=== PATIENT | female | born 1955 | race Caucasian/White ===

== ENCOUNTER 2024-09-25 22:34 | Emergency (ER) | payer MEDICARE, SELFPAY ==
--- OUTSIDE RECORDS SUMMARY | 2007-02-18 05:15 | XMS_ITS | Continuity of Care Document ---
Author Organization [facility] Address [address] [address] [place] [address] Phone Care Team Providers Care Solutions Analyst Name Role Phone Unavailable Unavailable Unavailable Allergies, Adverse Reactions, Alerts Substance Reaction Status Criticality Penicillins Itching, and swelling Active No Inf ormation Medications Medication Instructions Dosage Effective Dates (start - stop) Status Comments metformin ER 750 mg 24 hr Tab t tablet a day - Active Diovan 160 mg Tab every day - Active Lipitor 10 mg Tab Take 1 tablet by gustavo th daily - Active fexofenadine 180 mg Tab Take one tablet by mouth daily - Active Aspirin Low Dose 81 mg Tab, Delayed Release Take one tablet by mouth daily - Active Vitamin unknown Take 1 tablet by gustavo th daily - Active Procedures Procedure Date Colonoscopy Flex; Dx (sep Pro) 07 Advance Directives Directive Yes / No Effective Date File Name No Information Encounters Encounter Description Practice Location Reason(s) For Visit Diagnoses Date Provider Providers Copied on Encounter [facility], [address] [address], [place], [id number], tel:[phone] [facility] Colon Cancer ScreeningHemorrh oids Nos 7 No Information Family History Family Member Type Diagnosis Age At Onset No Information Payers Payer name Insurance type Covered constitution party ID Authoriza tion(s) [employer] [place] [id number] Social History Type Description Quantity Date Captured Comments Sex Female Smoking Status No Information Chief Complaint And Reason For Visit No Information Reason For Referral Reason For Referral No Information History Of Present Illness Encounter Date Complaint History Of Prese nt Illness No Information Functional Status Date Functional Assessmen t No Information Instructions Date Instruction Additional Infor mation No Information Assessments Type Assessment Date No Information Patient Care Teams Name Effective Dates (start - stop) Status Members No Information
--- OUTSIDE RECORDS SUMMARY | 2007-02-18 05:15 | XMS_ITS | Continuity of Care Document ---
Author Organization [facility] Address [address] [address] [place] [address] Phone Care Team Providers Care Tomb Maker Helper Name Role Phone Unavailable Unavailable Unavailable Allergies, [...] Diagnoses Date Provider Providers Copied on Encounter [facility], [address] [address], [place], [id number], tel:[phone] [facility] Colon Cancer ScreeningHemorrh oids Nos 7 No Information Family History Family Member Type Diagnosis Age At Onset No Information Payers Payer name Insurance type Covered republican ID Authoriza tion(s) [employer] [place] [id number] Social History Type Description Quantity Date Captured [...]
--- OUTSIDE RECORDS SUMMARY | 2024-08-31 11:00 | XMS_ITS | Encounter Summary ---
Author Organization [place] Address [address] [place] [address]. [place] [address] Care Team Providers Care District Extension Service Agent Name Role Phone Jolie Wild APRN SLUBBER MACHINE OPERATOR Primary Care Provider Jolie Wild APRN SLUBBER MACHINE OPERATOR Unavailable [phone] Sole Lockhart DPM, Podiatry /Foot and Ankle Surgery Unavailable Myron Moore MD Unavailable [phone] Reason for Visit * Reason Comments Recheck Medication Encounter Details Date Type Department Care Team (Late st Contact Info) Description 08/31/2024 11:00 AM CDT Office Visit [facility] [address] [place] [address] Jolie Wild APRN SLUBBER MACHINE OPERATOR [address] [place] [address] Hypertension goal BP (blood pressure) < 140/90 (Primary Dx); Type 2 diabetes mellitus without complication, without long-term current use of insulin (H); Hyperlipidemia LDL goal <100; HYPERLIPIDEMIA LDL GOAL <100; Diabetic polyneuropathy associated with type 2 diabetes mellitus (H) Social History Tobacco Use Types Packs/Day Years Used Date Smoking Tobacco: Never Smokeless Tobacco: Never Alcohol Use Standard Drinks/Week Comments Yes 0 (1 standard drink = 0.6 oz pur e alcohol) occasional PHQ-2 Answer Date Recorded PHQ-2 Score 0 08/31/2024 Adolescent Education Answer Date Record ed Getting School Help Needed Not on file 01/26 Interpersonal Safety Answer Date Record ed Do you feel physically and e motionally safe where you currently live? Yes 08/31/2024 Within the past 12 months, h ave you been hit, slapped, kicked or otherwise physically hurt by someone? No 08/31/2024 Within the past 12 months, h ave you been humiliated or emotionally abused in other ways by your partner or ex-partner? No 08/31/2024 Comments No Sex and Gender Information Value Date Recorded Sex Assigned at Not on file Legal Sex Female 3:11 AM ELEVATOR TROUBLESHOOTER Gender Identity Not on file Sexual Orientation Not on file Occupation Industry Job Start Date Job End Date retired Not on file Not on file Not on file Not on file Not on file Not on file Not on file documented as of this encounter Last Filed Vital Signs Vital Sign Reading Time Taken Comments Blood Pressure 151/87 08/31/2024 10:58 AM CDT Pulse 81 08/31/2024 10:58 AM CDT Temperature 36.7 C (98 F) 08/31/2024 10:58 AM CDT Respiratory Rate 14 08/31/2024 10:58 AM CDT Oxygen Saturation 100% 08/31/2024 10:58 AM CDT Inhaled Oxygen Concentration - - Weight 60.5 kg (133 lb 4.8 oz) 08/31/2024 10:58 AM CDT Height 167.6 cm (5' 6) 08/31/2024 10:58 AM CDT Body Mass Index 21.52 08/31/2024 10:58 AM CDT documented in this encounter Progress Notes * Jolie Wild APRN SLUBBER MACHINE OPERATOR - 08/31/2024 11:00 AM CDT Assessment & Plan Hypertension goal BP (blood pressure) < 140/90 Asymptomatic. Home readings well controlled. Refilled meds. Labs. Recheck in pharmacy. - Albumin Random Urine Quantitative with Creat Ratio; Future - Basic metabolic panel (Ca, Cl, CO2, Creat, Gluc, K, Na, BUN); Future - Albumin Random Urine Quantitative with Creat Ratio - Basic metabolic panel (Ca, Cl, CO2, Creat, Gluc, K, Na, BUN) - hydrochlorothiazide (HYDRODIURIL) 25 MG tablet; Take 1 tablet (25 mg) by mouth daily. - amLODIPine (NORVASC) 10 MG tablet; Take 1 tablet (10 mg) by mouth daily. Type 2 diabetes mellitus without complication, without long-term current use of insulin (H) Working on diet changes. Stay active. No change to med regimen. Recheck in 6 months. - Hemoglobin A1c; Future - Albumin Random Urine Quantitative with Creat Ratio; Future - Basic metabolic panel (Ca, Cl, CO2, Creat, Gluc, K, Na, BUN); Future - Hemoglobin A1c - Albumin Random Urine Quantitative with Creat Ratio - Basic metabolic panel (Ca, Cl, CO2, Creat, Gluc, K, Na, BUN) - metFORMIN (GLUCOPHAGE XR) 500 MG 24 hr tablet; Take 2 tablets (1,000 mg) by mouth 2 times daily. Hyperlipidemia LDL goal <100 Tolerating well. Refilled. Labs. - Lipid panel reflex to direct LDL Fasting; Future - Basic metabolic panel (Ca, Cl, CO2, Creat, Gluc, K, Na, BUN); Future - Lipid panel reflex to direct LDL Fasting - Basic metabolic panel (Ca, Cl, CO2, Creat, Gluc, K, Na, BUN) - lovastatin (MEVACOR) 40 MG tablet; Take 1 tablet (40 mg) by mouth daily. Diabetic polyneuropathy associated with type 2 diabetes mellitus (H) Stable. Monitor. The longitudinal plan of care for the diagnosis(es)/condition(s) as documented were addressed during this visit. Due to the added complexity in care, I will continue to support Kirsten in the subsequent management and with ongoing continuity of care. Alisha Curtis is a 69 year old, presenting for the following health issues: Recheck Medication 08/31/2024 10:57 AM Additional Questions Roomed by MR Accompanied by CAIO History of Present Illness Diabetes: She presents for follow up of diabetes. She is checking home blood glucose one time daily. She checks blood glucose at bedtime. Blood glucose is sometimes over 200 and never under 70. She is aware of hypoglycemia symptoms including dizziness. She has no concerns regarding her diabetes atthis time. She is having numbness in feet and burning in feet. The patient has had a diabetic eye exam in the last 12 months. Eye exam performed on July. Location of last eye exam [facility]. Hyperlipidemia: She presents for follow up of hyperlipidemia. She is taking medication to lower cholesterol. She is not having myalgia or other side effects to statin medications. Hypertension: She presents for follow up of hypertension. She does check blood pressure regularly outside of the clinic. Outpatient blood pressures have not been over 140/90. She does not follow a low salt diet. She eats 0-1 servings of fruits and vegetables daily.She consumes 0 sweetened beverage(s) daily.Sheexercises with enough effort to increase her heart rate 60 or more minutes per day. She exercises with enough effort to increase her heart rate 5 days per week. She is taking medications regularly. She will be making an eye appt soon No chest pain, palpitations, sob. No LE edema. Monitors bp at home. Readings in the 120-130s systolic and 70-80s diastolic. Taking medications as directed. No side effects. She has been eating out a lot more than usual lately. Aware that she needs to go back to baseline diet. Review of Systems Constitutional, HEENT, cardiovascular, pulmonary, gi and gu systems are negative, except as otherwise noted. Objective BP (!) 151/87 (BP Location: Right arm, Patient Position: Sitting, Cuff Size: Adult Regular) Pulse81 Temp 98 ??F (36.7 ??C) (Skin) Resp 14 Ht 1.676 m (5' 6) Wt 60.5 kg (133 lb 4.8 oz) LMP (LMP Unknown) SpO2 100% BMI 21.52 kg/m?? Body mass index is 21.52 kg/m??. Physical Exam GENERAL: alert and no distress EYES: Eyes grossly normal to inspection NECK: no adenopathy, no asymmetry, masses, or scars RESP: lungs clear to auscultation - no rales, rhonchi or wheezes CV: regular rate and rhythm, normal S1 S2, no S3 or S4, no murmur, click or rub, no peripheral edema ABDOMEN: soft, nontender, no hepatosplenomegaly, no masses and bowel sounds normal NEURO: Normal strength and tone, mentation intact and speech normal PSYCH: mentation appears normal, affect normal/bright Results for orders placed or performed in visit on 08/31/24 (from the past 24 hours) Hemoglobin A1c Result Value Ref Range Estimated Average Glucose 163 (H) <117 mg/dL Hemoglobin A1C 7.3 (H) 0.0 - 5.6 % Signed Electronically by: Jolie Wild APRN CNP documented in this encounter Plan of Treatment Upcoming Encounters Date Type Department Care Team (Late st Contact Info) Description 03/06/2025 9:00 AM ELEVATOR TROUBLESHOOTER Office Visit [facility] [address] [place] [address] Jolie Wild APRN SLUBBER MACHINE OPERATOR [address] [place] [address] documented as of this encounter Procedures Procedure Name Priority Date/Time Associated Diagnosis Comments ALBUMIN RANDOM URINE QUANTITATIVE Routine 08/31/2024 10:51 AM CDT Hypertension goal BP (blood pressure) < 140/90 Type 2 diabetes mellitus without complication, without long-term current use of insulin (H) LIPID REFLEX TO DIRECT LDL PANEL Routine 08/31/2024 10:41 AM CDT Hyperlipidemia LDL goal <100 HEMOGLOBIN A1C Routine 08/31/2024 10:41 AM CDT Type 2 diabetes mellitus without complication, without long-term current use of insulin (H) BASIC METABOLIC PANEL Routine 08/31/2024 10:41 AM CDT Hypertension goal BP (blood pressure) < 140/90 Type 2 diabetes mellitus without complication, without long-term current use of insulin (H) Hyperlipidemia LDL goal <100 documented in this encounter Results * Albumin Random Urine Quantitative with Creat Ratio (08/31/2024 10:51 AM CDT) Creatinine Urine mg/dL 22.4 mg/dL 08/31/2024 4:50 PM CDT [facility] Comment:The reference ranges have not been established in urine creatinine. The results should be integrated into the clinical context for interpretation. Albumin Urine mg/L <12.0 mg/L 2024 4:50 PM CDT [facility] Comment:The reference ranges have not been established in urine albumin. The results should be integrated into the clinical context for interpretation. Albumin Urine mg/g Cr 08/31/2024 4:50 PM CDT [facility] Comment: Unable to calculate, urine albumin and/or urine creatinine is outside detectable limits. Microalbuminuria is defined as an albumin:creatinine ratio of 17 to 299 for males and 25 to 299 for females. A ratio of albumin:creatinine of 300 or higher is indicative of overt proteinuria. Due to biologic variability, positive results should be confirmed by a second, first-morning random or 24-hour timed urine specimen. If there is discrepancy, a third specimen is recommended. When 2 out of 3 results are in the microalbuminuria range, this is evidence for incipient nephropathy and warrants increased efforts at glucose control, blood pressure control, and institution of therapy with an yctckqgrjrp-yocxwyztzg-dfgqfy (HANNAH) inhibitor (if the patient can tolerate it). Urine URINE SPECIMEN / Unknown Non-blood Collection / Unknown 08/31/2024 10:51 AM CDT 08/31/2024 10:51 AM CDT us Jolie Wild APRN SLUBBER MACHINE OPERATOR LAB - URINE ORDERABLES Final Result [facility] [address], [address] [id number] * (ABNORMAL) Basic metabolic panel (Ca, Cl, CO2, Creat, Gluc, K, Na, BUN) (08/31/2024 10:41 AM CDT) Sodium 138 135 - 145 mmol/L 08/31/2024 2:59 PM CDT [facility] Potassium 4.4 3.4 - 5.3 mmol/L 08/31/2024 2:59 PM CDT [facility] Chloride 98 98 - 107 mmol/L 08/31/2024 2:59 PM CDT [facility] Carbon Dioxide (CO2) 28 22 - 29 mmol/L 08/31/2024 2:59 PM CDT [facility] Anion Gap 12 7 - 15 mmol/L 08/31/2024 2:59 PM CDT [facility] Urea Nitrogen 9.1 8.0 - 23.0 mg/dL 08/31/2024 2:59 PM CDT [facility] Creatinine 0.50(L) 0.51 - 0.95 mg/dL 08/31/2024 2:59 PM CDT [facility] GFR Estimate >90 >60 mL/min/1.7 3m2 08/31/2024 2:59 PM CDT [facility] Comment:eGFR calculated usin 2020 CKD-EPI equation. Calcium 9.8 8.8 - 10.4 mg/dL 08/31/2024 2:59 PM CDT [facility] Glucose 211(H) 70 - 99 mg/dL 08/31/2024 2:59 PM CDT [facility] Patient Fasting > 8hrs? No 08/31/2024 2:59 PM CDT [facility] Blood BLOOD SPECIMEN / Unknown Venipuncture / Unknown 08/31/2024 10:41 AM CDT 08/31/2024 10:41 AM CDT us Jolie Wild PACKAGING TECHNICIAN SLUBBER MACHINE OPERATOR LAB - BLOOD ORDERABLES Final Result [facility] [place] [facility] [address], [address] [id number] * (ABNORMAL) Lipid panel reflex to direct LDL Fasting (08/31/2024 10:41 AM CDT) Cholesterol 219(H) <200 mg/dL 08/31/2024 2:59 PM CDT [facility] Triglycerides 60 <150 mg/dL 08/31/2024 2:59 PM CDT [facility] Direct Measure HDL 112 >=50 mg/dL 08/31/2024 2:59 PM CDT [facility] LDL Cholesterol Calculated 95 <100 mg/dL 08/31/2024 2:59 PM CDT [facility] Non HDL Cholesterol 107 <130 mg/dL 08/31/2024 2:59 PM CDT [facility] Patient Fasting > 8hrs? No 08/31/2024 2:59 PM CDT [facility] Blood BLOOD SPECIMEN / Unknown Venipuncture / Unknown 08/31/2024 10:41 AM CDT 08/31/2024 10:41 AM CDT Narrative [facility] - 08/31/2024 2:59 PM CDT Cholesterol Desirable: < 200 mg/dL Borderline High: 200 - 239 mg/dL High: >= 240 mg/dL Triglycerides Normal: < 150 mg/dL Borderline High: 150 - 199 mg/dL High: 200-499 mg/dL Very High: >= 500 mg/dL Direct Measure HDL Female: >= 50 mg/dL Male: >= 40 mg/dL LDL Cholesterol Desirable: < 100 mg/dL Above Desirable: 100 - 129 mg/dL Borderline High: 130 - 159 mg/dL High: 160 - 189 mg/dL Very High: >= 190 mg/dL Non HDL Cholesterol Desirable: < 130 mg/dL Above Desirable: 130 - 159 mg/dL Borderline High: 160 - 189 mg/dL High: 190 - 219 mg/dL Very High: >= 220 mg/dL Jolie Wild APRN, CNP LAB - BLOOD ORDERABLES Final Result [facility] Lab [address] [id number] * (ABNORMAL) Hemoglobin A1c (08/31/2024 10:41 AM CDT) Estimated Average Glucose 163(H) <117 mg/dL 08/31/2024 10:49 AM CDT LABORATORY Hemoglobin A1C 7.3(H) 0.0 - 5.6 % 08/31/2024 10:49 AM CDT LABORATORY Comment: Normal <5.7% Prediabetes 5.7-6.4% Diabetes 6.5% or higher Note: Adopted from ADA consensus guidelines. Blood BLOOD SPECIMEN / Unknown Venipuncture / Unknown 08/31/2024 10:41 AM CDT 08/31/2024 10:41 AM CDT Jolie Wild APRN, CNP LAB - BLOOD ORDERABLES Final Result [facility]ATORY [facility] [address] [address] [facility] (no room number, 1st floor of clinic) [place] [address], [facility] documented in this encounter Visit Diagnoses Diagnosis Hypertension goal BP (blood pressure) < 140/90- Primary Unspecified essential hypertension Type 2 diabetes mellitus without complication, without long-term current use of insulin (H) HYPERLIPIDEMIA LDL GOAL <100 Other and unspecified hyperlipidemia Diabetic polyneuropathy associated with type 2 diabetes mellitus (H) documented in this encounter Additional Health Concerns Assessment Noted Time PHQ-9 Depression Total Score: 2 12/19/19 21 11:32 AM CDT documented as of this encounter Care Teams District Extension Service Agent Relationship Specialty Start Date End Date Jolie Wild APRN SLUBBER MACHINE OPERATOR [address] [place] [address] PCP - General Family Practice 11/08/19 Jolie Wild APRN SLUBBER MACHINE OPERATOR [address] [place] [address] Assigned PCP 11/12/19 Sole Lockhart DPM, Podiatry/Foot and Ankle Surgery [address] [facility] [address] [place] [address] Assigned Musculoskeletal Provider 10/03/22 Myron Moore MD [address] [facility] [address] [place] [address] Assigned OBGYN Provider 03/13/23 documented as of this encounter
--- OUTSIDE RECORDS SUMMARY | 2024-09-25 22:36 | XMS_ITS | Encounter Summary ---
Author Organization [place] Address [address] [place] [address]. [place] [address] Care Team Providers Care Furniture Stainer Name Role Phone Jolie Wild APRN TICKET SORTER Primary Care Provider Jolie Wild APRN TICKET SORTER Unavailable [phone] Sole Lockhart DPM, Podiatry /Foot and Ankle Surgery Unavailable Myron Moore MD Unavailable [phone] Encounter Details Date Type Department Care Team (Latest Contact Info) Description 08/31/2024 Travel Social History Tobacco Use Types Packs/Day Years [...] on file Legal Sex Female 3:11 AM BAKERY MACHINE MECHANIC SUPERVISOR Gender Identity Not on file Sexual Orientation Not on file Occupation Industry Job Start Date Job End Date retired Not on file Not on file Not on file Not on file Not on file Not on file Not on file documented as of this encounter Plan of Treatment Upcoming Encounters Date Type Department Care Team (Late st Contact Info) Description 03/06/2025 9:00 AM BAKERY MACHINE MECHANIC SUPERVISOR [facility] [address] [place] [address] Jolie Wild APRN TICKET SORTER [address] [place] [address] documented as of this encounter Visit Diagnoses Not on filedocumented in this encounter Additional Health Concerns Assessment Noted Time PHQ-9 Depression Total Score: 2 12/19/19 21 11:32 AM CDT documented as of this encounter Care Teams Furniture Stainer Relationship Specialty Start Date End Date Jolie Wild APRN TICKET SORTER [address] [place] [address] PCP - General Family Practice 11/08/19 Jolie Wild APRN TICKET SORTER [address] [place] [address] Assigned PCP 11/12/19 Sole Lockhart DPM, Podiatry/Foot and Ankle Surgery [address] [facility] [address] [place] [address] Assigned Musculoskeletal Provider 10/03/22 Myron Moore MD [address] [facility] [address] [place] [address] Assigned OBGYN Provider 03/13/23 documented as of this encounter
--- OUTSIDE RECORDS SUMMARY | 2024-09-25 22:36 | XMS_ITS | Encounter Summary ---
Author Organization [place] Address [address] [place] [address]. [place] [address] Care Team Providers Care Safety Trainer Name Role Phone Jolie Wild APRN INTERN Primary Care Provider Jolie Wild APRN INTERN Unavailable [phone] Sole Lockhart DPM, Podiatry /Foot and Ankle Surgery Unavailable Myron Moore MD Unavailable [phone] Encounter Details Date Type Department Care Team (Late st Contact Info) Description 11/15/2023 My[facility] Medical Advice [address] [address] Josey Coates Social History Tobacco Use Types Packs/Day Years Used Date Smoking Tobacco: Never Smokeless Tobacco: Never Alcohol Use Standard Drinks/Week Comments Yes 0 (1 standard drink = 0.6 oz pur e alcohol) occasional PHQ-2 Answer Date Recorded PHQ-2 Score 0 11/15/2023 Adolescent Education Answer Date Record ed Getting School Help Needed Not on file 01/26 Interpersonal Safety Answer Date Record ed Do you feel physically and e motionally safe where you currently live? Yes 11/15/2023 Within the past 12 months, h ave you been hit, slapped, kicked or otherwise physically hurt by someone? No 11/15/2023 Within the past 12 months, h ave you been humiliated or emotionally abused in other ways by your partner or ex-partner? No 11/15/2023 Comments No Sex and Gender Information Value Date Recorded Sex Assigned at Not on file Legal Sex Female 3:11 AM MARKET GARDENER Gender Identity Not on file Sexual Orientation Not on file Occupation Industry Job Start Date Job End Date retired Not on file Not on file Not on file Not on file Not on file Not on file Not on file documented as of this encounter Plan of Treatment Upcoming Encounters Date Type Department Care Team (Late st Contact Info) Description 03/06/2025 9:00 AM MARKET GARDENER Office Visit [facility] [place] [address] [place] [id number] Jolie Wild APRN INTERN [address] [place] [id number] documented as of this encounter Visit Diagnoses Not on filedocumented in this encounter Additional Health Concerns Assessment Noted Time PHQ-9 Depression Total Score: 2 12/19/19 21 11:32 AM CDT documented as of this encounter Care Teams Safety Trainer Relationship Specialty Start Date End Date Jolie Wild APRN INTERN [address] [place] [address] PCP - General Family Practice 11/08/19 Jolie Wild APRN INTERN [address] [place] [address] Assigned PCP 11/12/19 Sole Lockhart DPM, Podiatry/Foot and Ankle Surgery [address] [place] [address] Assigned Musculoskeletal Provider 10/03/22 Myron Moore MD [address] [place] [address] Assigned OBGYN Provider 03/13/23 documented as of this encounter
--- OUTSIDE RECORDS SUMMARY | 2024-09-25 22:36 | XMS_ITS | Encounter Summary ---
Author Organization [place] Address [address] [place] [address]. [place] [address] Care Team Providers Care Organic Chemist Name Role Phone Jolie Wild APRN COMPOSITION BOARD PRESS OPERATOR Primary Care Provider Jolie Wild APRN COMPOSITION BOARD PRESS OPERATOR Unavailable [phone] Sole Lockhart DPM, Podiatry /Foot and Ankle Surgery Unavailable Myron Moore MD Unavailable [phone] Encounter Details Date Type Department Care Team (Late st Contact Info) Description 04/01/2022 [facility] Medical Advice Adult Call Center [address] [place] [address] [facility] Tobacco Use Types Packs/Day Years Used Date Smoking Tobacco: Never Smokeless Tobacco: Never Alcohol Use Standard Drinks/Week Comments Yes 0 (1 standard drink = 0.6 oz pur e alcohol) occasional PHQ-2 Answer Date Recorded PHQ-2 Score 0 02/26/2022 Comments No Sex and Gender Information Value Date Recorded Sex Assigned at Not on file Legal Sex Female 3:11 AM PROFESSOR OF FORESTRY Gender Identity Not on file Sexual Orientation Not on file Occupation Industry Job Start Date Job End Date retired Not on file Not on file Not on file Not on file Not on file Not on file Not on file documented as of this encounter Plan of Treatment Upcoming Encounters Date Type Department Care Team (Late st Contact Info) Description 03/06/2025 9:00 AM PROFESSOR OF FORESTRY Office Visit [facility] [address] [address] [address] Jolie Wild APRN COMPOSITION BOARD PRESS OPERATOR [address] [place] [address] documented as of this encounter Visit Diagnoses Not on filedocumented in this encounter Additional Health Concerns Assessment Noted Time PHQ-9 Depression Total Score: 2 12/19/19 21 11:32 AM CDT documented as of this encounter Care Teams Organic Chemist Relationship Specialty Start Date End Date Jolie Wild APRN COMPOSITION BOARD PRESS OPERATOR [address] [place] [address] PCP - General Family Practice 11/08/19 Jolie Wild APRN COMPOSITION BOARD PRESS OPERATOR [address] [place] [address] Assigned PCP 11/12/19 Sole Lockhart DPM, Podiatry/Foot and Ankle Surgery [address] [facility] [address] [place] [address] Assigned Musculoskeletal Provider 10/03/22 Myron Moore MD [address] [facility] [address] [place] [address] Assigned OBGYN Provider 03/13/23 documented as of this encounter
--- OUTSIDE RECORDS SUMMARY | 2024-09-25 22:36 | XMS_ITS | Encounter Summary ---
Author Organization [place] Address [address] [place] [address]. [place] [address] Care Team Providers Care Roll Threader Operator Name Role Phone Jolie Wild APRN TRANSPORT COORDINATOR Primary Care Provider Jolie Wild APRN TRANSPORT COORDINATOR Unavailable [phone] Sole Lockhart DPM, Podiatry /Foot and Ankle Surgery Unavailable Myron Moore MD Unavailable [phone] Reason for Visit * Reason Onset Date Comments Panel Management 08/18/2024 Encounter Details Date Type Department Care Team (Late st Contact Info) Description 08/18/2024 Telephone [facility] [address] [place] [address] Jolie Wild APRN TRANSPORT COORDINATOR [address] [place] [address] Panel Management Social History Tobacco Use Types Packs/Day Years [...] on file Legal Sex Female 3:11 AM UNIX DEVELOPER Gender Identity Not on file Sexual Orientation Not on file Occupation Industry Job Start Date Job End Date retired Not on file Not on file Not on file Not on file Not on file Not on file Not on file documented as of this encounter Miscellaneous Notes * Telephone Encounter - Dariela Arteaga MA - 08/25/2024 6:35 AM CDT Patient Quality Outreach Patient is due for the following: Diabetes - A1C Hypertension - BP check Physical Annual Wellness Visit Action(s) Taken: Patient has upcoming appointment, these items will be addressed at that time. Type of outreach: Sent letter. Questions for provider review: None Dariela Arteaga MA Chart routed to None. * Telephone Encounter - Dariela Arteaga MA - 08/18/2024 2:14 PM CDT Patient Quality Outreach Patient is due for the following: Physical Annual Wellness Visit Action(s) Taken: Schedule a Annual Wellness Visit Type of outreach: Sent [employer] message. Questions for provider review: None Dariela Arteaga MA Chart routed to None. documented in this encounter Plan of Treatment Upcoming Encounters Date Type Department Care Team (Late st Contact Info) Description 03/06/2025 9:00 AM UNIX DEVELOPER Office Visit [facility] [address] [place] [address] Jolie Wild APRN [facility] [address] [place] [address] documented as of this encounter Visit Diagnoses Not on filedocumented in this encounter Additional Health Concerns Assessment Noted Time PHQ-9 Depression Total Score: 2 12/19/19 21 11:32 AM CDT documented as of this encounter Care Teams Roll Threader Operator Relationship Specialty Start Date End Date Jolie Wild APRN TRANSPORT COORDINATOR [address] [place] [address] PCP - General Family Practice 11/08/19 Jolie Wild APRN TRANSPORT COORDINATOR [address] [address] [place] [address] Assigned PCP 11/12/19 Sole Lockhart DPRenea, Podiatry/Foot and Ankle Surgery [address] [place], [place] [address] Assigned Musculoskeletal Provider 10/03/22 Myron Moore MD [address] [place] [address] Assigned OBGYN Provider 03/13/23 documented as of this encounter
--- OUTSIDE RECORDS SUMMARY | 2024-09-25 22:36 | XMS_ITS | Encounter Summary ---
Author Organization [place] Address [facility] [place] [address] Care Team Providers Care Construction Carpenters Helper Name Role Phone Jolie Wild APRN RECREATION ESTABLISHMENT MANAGER Primary Care Provider Jolie Wild APRN RECREATION ESTABLISHMENT MANAGER Unavailable [phone] Sole Lockhart DPM, Podiatry /Foot and Ankle Surgery Unavailable Myron Moore MD Unavailable [phone] Encounter Details Date Type Department Care Team (Late st Contact Info) Description 12/24/2023 Telephone [facility] [address] [place] [address] Jolie Wild APRN [employer] [address] [place] [address] Social History Tobacco Use Types Packs/Day Years [...] on file Legal Sex Female 3:11 AM RESTRIKE HAMMER OPERATOR Gender Identity Not on file Sexual Orientation Not on file Occupation Industry Job Start Date Job End Date retired Not on file Not on file Not on file Not on file Not on file Not on file Not on file documented as of this encounter Miscellaneous Notes * Telephone Encounter - Traci West MA - 12/24/2023 8:28 AM CDT Patient Quality Outreach Patient is due for the following: Hypertension - BP check Next Steps: Schedule a nurse only visit for BP Check Type of outreach: Sent [employer] message. Questions for provider review: None Traci West MA documented in this encounter Plan of Treatment Upcoming Encounters Date Type Department Care Team (Late st Contact Info) Description 03/06/2025 9:00 AM RESTRIKE HAMMER OPERATOR Office Visit [facility] [place] [address] [address] Jolie Wild APRN CNP [address] [address] [place] [address] documented as of this encounter Visit Diagnoses Not on filedocumented in this encounter Additional Health Concerns Assessment Noted Time PHQ-9 Depression Total Score: 2 12/19/19 21 11:32 AM CDT documented as of this encounter Care Teams Construction Carpenters Helper Relationship Specialty Start Date End Date Jolie Wild APRN RECREATION ESTABLISHMENT MANAGER [address] [address] [place] [address] PCP - General Family Practice 11/08/19 Jolie Wild APRN CNP [address] [address] [place] [address] Assigned PCP 11/12/19 Sole Lockhart DPM, Podiatry/Foot and Ankle Surgery [address] [facility] [address] [place] [address] Assigned Musculoskeletal Provider 10/03/22 Myron Moore MD [address] [facility] [address] [place] [address] Assigned OBGYN Provider 03/13/23 documented as of this encounter
--- OUTSIDE RECORDS SUMMARY | 2024-09-25 22:36 | XMS_ITS | Encounter Summary ---
Author Organization [place] Address [address] [place] [address]. [place] [address] Care Team Providers Care Counselor/Art Therapist Name Role Phone Jolie Wild APRN HERD TESTER Primary Care Provider Jolie Wild APRN HERD TESTER Unavailable [phone] Sole Lockhart DPM, Podiatry /Foot and Ankle Surgery Unavailable Myron Moore MD Unavailable [phone] Encounter Details Date Type Department Care Team (Late st Contact Info) Description 09/04/2024 Results Follow-Up [facility] [address] [place] [address] Jolie Wild APRN HERD TESTER [address] [place] [address] Subj: Message about your results Social History Tobacco Use Types Packs/Day Years [...] on file Legal Sex Female 3:11 AM MANUFACTURERS AGENT Gender Identity Not on file Sexual Orientation Not on file Occupation Industry Job Start Date Job End Date retired Not on file Not on file Not on file Not on file Not on file Not on file Not on file documented as of this encounter Plan of Treatment Upcoming Encounters Date Type Department Care Team (Late st Contact Info) Description 03/06/2025 9:00 AM MANUFACTURERS AGENT Office Visit [facility] [address] [place] [address] Jolie Wild APRN HERD TESTER [address] [place] [address] documented as of this encounter Visit Diagnoses Not on filedocumented in this encounter Additional Health Concerns Assessment Noted Time PHQ-9 Depression Total Score: 2 12/19/19 21 11:32 AM CDT documented as of this encounter Care Teams Counselor/Art Therapist Relationship Specialty Start Date End Date Jolie Wild APRN CNP [address] [place] [address] PCP - General Family Practice 11/08/19 Jolie Wild APRN HERD TESTER [address] [place] [address] Assigned PCP 11/12/19 Sole Lockhart, DPM, Podiatry/Foot and Ankle Surgery [address] [place] [address] Assigned Musculoskeletal Provider 10/03/22 Myron Moore MD [address] [facility] [address] [place], [place] [address] Assigned OBGYN Provider 03/13/23 documented as of this encounter
--- OUTSIDE RECORDS SUMMARY | 2024-09-25 22:36 | XMS_ITS | Encounter Summary ---
Author Organization [place] Address [address] [place] [address] Care Team Providers Care Environmental Health Officer Name Role Phone Jolie Wild APRN MCAT INSTRUCTOR Primary Care Provider Jolie Wild APRN MCAT INSTRUCTOR Unavailable [phone] Sole Lockhart DPM, Podiatry /Foot and Ankle Surgery Unavailable Myron Moore MD Unavailable [phone] Encounter Details Date Type Department Care Team (Late st Contact Info) Description 06/29/2023 [facility] Medical Advice [address] [address] Raji Rosas, SAL Social History Tobacco Use Types Packs/Day Years Used Date Smoking Tobacco: Never Smokeless Tobacco: Never Alcohol Use Standard Drinks/Week Comments Yes 0 (1 standard drink = 0.6 oz pur e alcohol) occasional PHQ-2 Answer Date Recorded PHQ-2 Score 0 09/30/2022 Adolescent Education Answer Date Record ed Getting School Help Needed Not on file 01/26 Comments No Sex and Gender Information Value Date Recorded Sex Assigned at Not on file Legal Sex Female 3:11 AM MAJOR CASE DETECTIVE Gender Identity Not on file Sexual Orientation Not on file Occupation Industry Job Start Date Job End Date retired Not on file Not on file Not on file Not on file Not on file Not on file Not on file documented as of this encounter Plan of Treatment Upcoming Encounters Date Type Department Care Team (Late st Contact Info) Description 03/06/2025 9:00 AM MAJOR CASE DETECTIVE Office Visit [facility] [place] [address] [address] [address] Jolie Wild APRN MCAT INSTRUCTOR [address] [address] [place] [address] documented as of this encounter Visit Diagnoses Not on filedocumented in this encounter Additional Health Concerns Assessment Noted Time PHQ-9 Depression Total Score: 2 12/19/19 21 11:32 AM CDT documented as of this encounter Care Teams Environmental Health Officer Relationship Specialty Start Date End Date Jolie Wild APRN MCAT INSTRUCTOR [address] [address] [place] [address] PCP - General Family Practice 11/08/19 Jolie Wild APRN MCAT INSTRUCTOR [address] [address] [place] [address] Assigned PCP 11/12/19 Sole Lockhart DPM, Podiatry/Foot and Ankle Surgery [address] [address] [place] [address] Assigned Musculoskeletal Provider 10/03/22 Myron Moore MD [address] [place] [address] Assigned OBGYN Provider 03/13/23 documented as of this encounter
--- OUTSIDE RECORDS SUMMARY | 2024-09-25 22:36 | XMS_ITS | Encounter Summary ---
Author Organization [place] Address [address] [place] [address]. [place] [address] Care Team Providers Care Desktop Publishing Specialist Name Role Phone Jolie Wild APRN OPTOMETRIC TECHNOLOGIST Primary Care Provider Jolie Wild APRN OPTOMETRIC TECHNOLOGIST Unavailable [phone] Sole Lockhart DPM, Podiatry /Foot and Ankle Surgery Unavailable Myron Moore MD Unavailable [phone] Encounter Details Date Type Department Care Team (Late st Contact Info) Description 03/27/2021 External Order Results [facility] [address] [place] [address] Outside, Provider Social History Tobacco Use Types Packs/Day Years Used Date Smoking Tobacco: Never Smokeless Tobacco: Never Alcohol Use Standard Drinks/Week Comments Yes 0 (1 standard drink = 0.6 oz pur e alcohol) occasional PHQ-2 Answer Date Recorded PHQ-2 Score 0 12/18/2020 Comments No Sex and Gender Information Value Date Recorded Sex Assigned at Not on file Legal Sex Female 3:11 AM REIMBURSEMENT MANAGER Gender Identity Not on file Sexual Orientation Not on file Occupation Industry Job Start Date Job End Date retired Not on file Not on file Not on file Not on file Not on file Not on file Not on file documented as of this encounter Plan of Treatment Upcoming Encounters Date Type Department Care Team (Late st Contact Info) Description 03/06/2025 9:00 AM REIMBURSEMENT MANAGER Office Visit [facility] [place] [address] [address] Jolie Wild APRN OPTOMETRIC TECHNOLOGIST [address] [address] [place] [address] documented as of this encounter Procedures Procedure Name Priority Date/Time Associated Diagnosis Comments COVID-19 VIRUS (CORONAVIRUS) BY PCR (EXTERNAL RESULT) Routine 03/27/2021 1:00 PM REIMBURSEMENT MANAGER documented in this encounter Results * (ABNORMAL) COVID-19 Virus (Coronavirus) by PCR (External Result) (03/27/2021 1:00 PM REIMBURSEMENT MANAGER) COVID-19 Virus by PCR (External Result) DETECTED( A) NOT DETECTED NON-INTERFACE D (ONBASE SCANS) 03/27/2021 1:00 PM REIMBURSEMENT MANAGER Narrative CLAUDIO PFT - 05/12/2021 2:55 PM REIMBURSEMENT MANAGER Verified by Naun Leslie on 05/12/2021. us Provider Outside LABORATORY Edited Result - Final JYOTIARUN PFT NON-INTERFACED (ONBASE SCANS) documented in this encounter Visit Diagnoses Not on filedocumented in this encounter Additional Health Concerns Infection Onset Date Last Indicated Resolved Time Rule Out COVID-19 04/12/2021 04/12/2021 04/13/2021 2:53 PM REIMBURSEMENT MANAGER Assessment Noted Time PHQ-9 Depression Total Score: 2 12/19/19 21 11:32 AM CDT documented as of this encounter Care Teams Desktop Publishing Specialist Relationship Specialty Start Date End Date Jolie Wild APRN OPTOMETRIC TECHNOLOGIST [address] [place] [address] PCP - General Family Practice 11/08/19 Jolie Wild APRN OPTOMETRIC TECHNOLOGIST [address] [address] [place] [address] Assigned PCP 11/12/19 Sole Lockhart DPM, Podiatry/Foot and Ankle Surgery [address] [facility] [address] [place] [address] Assigned Musculoskeletal Provider 10/03/22 Myron Moore MD [address] [facility] [address] [place] [address] Assigned OBGYN Provider 03/13/23 documented as of this encounter
--- OUTSIDE RECORDS SUMMARY | 2024-09-25 22:36 | XMS_ITS | Encounter Summary ---
Author Organization [place] Address [address] [place] [address]. [place] [address] Care Team Providers Care Cigarette Packing Machine Operator Name Role Phone Jolie Wild APRN ROAD PRODUCTION GENERAL MANAGER Primary Care Provider Jolie Wild APRN ROAD PRODUCTION GENERAL MANAGER Unavailable [phone] Sole Lockhart DPM, Podiatry /Foot and Ankle Surgery Unavailable Myron Moore MD Unavailable [phone] Encounter Details Date Type Department Care Team (Late st Contact Info) Description 08/18/2024 [facility] Medical Advice [address] [address] Dariela Arteaga MA Social History Tobacco Use Types Packs/Day Years [...] on file Legal Sex Female 3:11 AM TITLE INSURANCE EXAMINER Gender Identity Not on file Sexual Orientation Not on file Occupation Industry Job Start Date Job End Date retired Not on file Not on file Not on file Not on file Not on file Not on file Not on file documented as of this encounter Plan of Treatment Upcoming Encounters Date Type Department Care Team (Late st Contact Info) Description 03/06/2025 9:00 AM TITLE INSURANCE EXAMINER Office Visit [facility] [place] [address] [place] [address] PRODUCTION GENERAL MANAGER [address] [place] [address] documented as of this encounter Visit Diagnoses Not on filedocumented in this encounter Additional Health Concerns Assessment Noted Time PHQ-9 Depression Total Score: 2 12/19/19 21 11:32 AM CDT documented as of this encounter Care Teams Cigarette Packing Machine Operator Relationship Specialty Start Date End Date Jolie Wild APRN ROAD PRODUCTION GENERAL MANAGER [address] [place] [address] PCP - General Family Practice 11/08/[address] PRODUCTION GENERAL MANAGER [address] [place] [address] Assigned PCP 11/12/19 Sole Lockhart DPM, Podiatry/Foot and Ankle Surgery [address] [place] [address] Assigned Musculoskeletal Provider 10/03/22 Myron Moore MD [address] [place] [address] Assigned OBGYN Provider 03/13/23 documented as of this encounter
--- OUTSIDE RECORDS SUMMARY | 2024-09-25 22:36 | XMS_ITS | Encounter Summary ---
Author Organization [place] Address [address] [place] [address] Care Team Providers Care Powerplant Operator Name Role Phone Jolie Wild APRN PROVIDER RELATIONS MANAGER Primary Care Provider Jolie Wild APRN PROVIDER RELATIONS MANAGER Unavailable [phone] Sole Lockhart DPM, Podiatry /Foot and Ankle Surgery Unavailable Myron Moore MD Unavailable [phone] Encounter Details Date Type Department Care Team (Late st Contact Info) Description 03/16/2023 [facility] Medical Advice [facility] [address] [place] [phone] Kathia Dodsno Social History Tobacco Use Types Packs/Day Years [...] on file Legal Sex Female 3:11 AM POULTRY PROCESSING SUPERVISOR Gender Identity Not on file Sexual [...] st Contact Info) Description 03/06/2025 9:00 AM POULTRY PROCESSING SUPERVISOR Office Visit [facility] [place] [address] [address] [address] Jolie Wild APRN PROVIDER RELATIONS MANAGER [address] [address] [place] [address] documented as of this encounter Visit Diagnoses Not on filedocumented in this encounter Additional Health Concerns Assessment Noted Time PHQ-9 Depression Total Score: 2 12/19/19 21 11:32 AM CDT documented as of this encounter Care Teams Powerplant Operator Relationship Specialty Start Date End Date Jolie Wild APRN PROVIDER RELATIONS MANAGER [address] [address] [place] [address] PCP - General Family Practice 11/08/19 Jolie Wild APRN PROVIDER RELATIONS MANAGER [address] [address] [place] [address] Assigned PCP 11/12/19 Sole Lockhart DPM, Podiatry/Foot and Ankle Surgery [address] [place] [address] Assigned Musculoskeletal Provider 10/03/22 Myron Moore MD [address] [place] [address] Assigned OBGYN Provider 03/13/23 documented as of this encounter
--- OUTSIDE RECORDS SUMMARY | 2024-09-25 22:36 | XMS_ITS | Encounter Summary ---
Author Organization [place] Address [address] [place] [address] Care Team Providers Care Instructor Industrial Design Name Role Phone Jolie Wild APRN RAT BREEDER Primary Care Provider Jolie Wild APRN RAT BREEDER Unavailable [phone] Sole Lockhart DPM, Podiatry /Foot and Ankle Surgery Unavailable Myron Moore MD Unavailable [phone] Encounter Details Date Type Department Care Team (Late st Contact Info) Description 09/09/2022 [facility] Medical Advice [address] [address] Leah Gale Social History Tobacco Use Types Packs/Day Years Used Date Smoking Tobacco: Never Smokeless Tobacco: Never Alcohol Use Standard Drinks/Week Comments Yes 0 (1 standard drink = 0.6 oz pur e alcohol) occasional PHQ-2 Answer Date Recorded PHQ-2 Score 0 02/26/2022 Comments No Sex and Gender Information Value Date Recorded Sex Assigned at Not on file Legal Sex Female 3:11 AM 4TH GRADE TEACHER Gender Identity Not on file Sexual Orientation Not on file Occupation Industry Job Start Date Job End Date retired Not on file Not on file Not on file Not on file Not on file Not on file Not on file COVID-19 Exposure Response Date Recorded In the last 10 days, have yo u been in contact with someone who was confirmed or suspected to have Coronavirus/COVID-19? No / Unsure 08/25/2022 9:20 AM CDT documented as of this encounter Plan of Treatment Upcoming Encounters Date Type Department Care Team (Late st Contact Info) Description 03/06/2025 9:00 AM 4TH GRADE TEACHER Office Visit [facility] [address] [place] [address] Jolie Wild APRN RAT BREEDER [address] [place] [address] documented as of this encounter Visit Diagnoses Not on filedocumented in this encounter Additional Health Concerns Assessment Noted Time PHQ-9 Depression Total Score: 2 12/19/19 21 11:32 AM CDT documented as of this encounter Care Teams Instructor Industrial Design Relationship Specialty Start Date End Date oJlie Wild APRN RAT BREEDER [address] [place] [address] PCP - General Family Practice 11/08/19 Jolie Wild APRN RAT BREEDER [address] [place] [address] Assigned PCP 11/12/19 Sole Lockhart, DPM, Podiatry/Foot and Ankle Surgery [address] [place], [place] [address] Assigned Musculoskeletal Provider 10/03/22 Myron Moore MD [address] [place] [address] Assigned OBGYN Provider 03/13/23 documented as of this encounter
--- OUTSIDE RECORDS SUMMARY | 2024-09-25 22:36 | XMS_ITS | Encounter Summary ---
Author Organization [place] Address [address] [place] [address] Care Team Providers Care Academic Adviser Name Role Phone Jolie Wild APRN DIVORCE ATTORNEY Primary Care Provider Jolie Wild APRN DIVORCE ATTORNEY Unavailable [phone] Sole Lockhart DPM, Podiatry /Foot and Ankle Surgery Unavailable Myron Moore MD Unavailable Encounter Details Date Type Department Care Team (Late st Contact Info) Description 03/10/2023 MyC Medical Advice [facility] [address] [address] Virgil Hernández, RN Social History Tobacco Use Types Packs/Day Years [...] on file Legal Sex Female 3:11 AM IMPROVEMENT ADVISOR Gender Identity Not on file Sexual Orientation Not on file Occupation Industry Job Start Date Job End Date retired Not on file Not on file Not on file Not on file Not on file Not on file Not on file documented as of this encounter Plan of Treatment Upcoming Encounters Date Type Department Care Team (Late st Contact Info) Description 03/06/2025 9:00 AM IMPROVEMENT ADVISOR Office Visit [facility] [place] [address] [address] [phone] Jolie Wild APRN DIVORCE ATTORNEY [address] [place] [address] documented as of this encounter Visit Diagnoses Not on filedocumented in this encounter Additional Health Concerns Assessment Noted Time PHQ-9 Depression Total Score: 2 12/19/19 21 11:32 AM CDT documented as of this encounter Care Teams Academic Adviser Relationship Specialty Start Date End Date Jolie Wild APRN CNP [id number] [address] PCP - General Family Practice 11/08/19 Jolie Wild APRN DIVORCE ATTORNEY [address] [address] [address] Assigned PCP 11/12/19 Sole Lockhart DPM, Podiatry/Foot and Ankle Surgery [address] [facility] [address] [place] [address] Assigned Musculoskeletal Provider 10/03/22 Myron Moore MD [address] [facility] [address] [place] [address] Assigned OBGYN Provider 03/13/23 documented as of this encounter
--- OUTSIDE RECORDS SUMMARY | 2024-09-25 22:36 | XMS_ITS | Clinical Summary ---
Author Organization [place] Address [address] [place] [id number] Care Team Providers Care Brass Pourer Name Role Phone Jolie Wild APRN SUPERVISOR PLASTICS Primary Care Provider Jolie Wild APRN SUPERVISOR PLASTICS Unavailable [phone] Sole Lockhart DPM, Podiatry /Foot and Ankle Surgery Unavailable Myron Moore MD Unavailable [phone] Allergies Active Allergy Reactions Criticality Noted Date Comments Penicillins hives Seasonal Allergies 05/09/2019 Medications Coenzyme Q10 (CO Q10) 100 MG CAPS Take by mouth daily as needed Dose uncertain 30 capsule 11/09/19 15 Active fluticasone (FLONASE) 50 MCG/ACT sprayIndicati ons:Nasal congestion USE 1-2 SPRAYS INTO BOTH NOSTRILS DAILY 16 mL 5 08/18/19 17 Active Additional Information Patient taking differently: PRN, Reported on 08/31/2024 FEXOFENADINE HCL PO Take 1 tablet by mouth daily as needed for allergies Active aspirin 81 MG EC tablet Take 81 mg by mouth every other day Active ONETOUCH ULTRA test stripIndicati ons:Type 2 diabetes mellitus without complication, without long-term current use of insulin (H) TEST ONCE DAILY OR DIRECTED 200 strip 07/04/19 25 Active lovastatin (MEVACOR) 40 MG tabletIndicat ions:Hyperlip idemia LDL goal <100 Take 1 tablet (40 mg) by mouth daily. 90 tablet 3 09/01/19 25 Active hydrochloroth iazide (HYDRODIURIL) 25 MG tabletIndicat ions:Hyperten corona goal BP (blood pressure) < 140/90 Take 1 tablet (25 mg) by mouth daily. 90 tablet 1 09/01/19 25 Active metFORMIN (GLUCOPHAGE XR) 500 MG 24 hr tabletIndicat ions:Type 2 diabetes mellitus without complication, without long-term current use of insulin (H) Take 2 tablets (1,000 mg) by mouth 2 times daily. 360 tablet 1 09/01/19 25 Active amLODIPine (NORVASC) 10 MG tabletIndicat ions:Hyperten corona goal BP (blood pressure) < 140/90 Take 1 tablet (10 mg) by mouth daily. 90 tablet 1 09/01/19 25 Active valACYclovir (VALTREX) 1000 mg tabletIndicat ions:Cold sore Take 2 tablets (2,000 mg) by mouth 2 times daily For 2 doses as needed for cold sore 28 tablet 07/04/19 22 025 Discontinued lovastatin (MEVACOR) 40 MG tabletIndicat ions:Hyperlip idemia LDL goal <100 Take 1 tablet (40 mg) by mouth daily 90 tablet 3 11/15/19 24 025 Discontinued(Re order (No AVS)) amLODIPine (NORVASC) 10 MG tabletIndicat ions:Hyperten corona goal BP (blood pressure) < 140/90 TAKE ONE TABLET BY MOUTH EVERY DAY 90 tablet 07/04/19 25 025 Discontinued(Re order (No AVS)) hydrochloroth iazide (HYDRODIURIL) 25 MG tabletIndicat ions:Hyperten corona goal BP (blood pressure) < 140/90 TAKE ONE TABLET BY MOUTH EVERY DAY 90 tablet 07/04/19 25 025 Discontinued(Re order (No AVS)) metFORMIN (GLUCOPHAGE XR) 500 MG 24 hr tabletIndicat ions:Type 2 diabetes mellitus without complication, without long-term current use of insulin (H) TAKE TWO TABLETS BY MOUTH TWICE A DAY 360 tablet 07/04/19 25 025 Discontinued(Re order (No AVS)) Active Problems Problem Noted Date Diagnosed Date Diabetic polyneuropathy asso ciated with type 2 diabetes mellitus 08/31/2024 Hypertension goal BP (blood pressure) < 140/90 1 05/15/2011 Seasonal allergic rhinitis 09/30/2010 Cystocele 07/08/2010 HYPERLIPIDEMIA LDL GOAL <100 06/05/2009 Type 2 diabetes mellitus without complications 0 05/16/2009 Plantar fascial fibromatosis 03/30/2005 Other specified idiopathic peripheral neuropathy 03/23/2005 Resolved Problems Problem Noted Date Diagnosed Date Resolved Date Low back pain 09/12/2013 09/20/2013 Overview (02/25/2015): Diagnosis updated by automated process. Provider to review and confirm. Advanced directives, counseling/discussion 08/25/2012 10/11/2023 Overview (08/25/2012): Pt given info and will call us if she needs any help with it Alicia Boyd CMA ([facility]) Pain in joint, shoulder region 10/19/2011 05/18/2012 Stiffness of joint, not else where classified, shoulder region 10/19/2011 05/18/2012 Rotator cuff tear 10/19/2011 05/18/2012 Other postprocedural status(V45.89) 10/19/2011 05/18/2012 Urinary incontinence 07/08/2010 011 Diabetes mellitus, type 2 05/27/2010 Overview (01/25/2015): Problem list name updated by automated process. Provider to review Lumbago 12/12/2008 01/02/2009 Essential hypertension 07/20/200203/15 Overview (01/24/2015): Problem list name updated by automated process. Provider to review Diabetes mellitus, type 2 07/20/2002 Overview (01/24/2015): Problem list name updated by automated process. Provider to review Hyperlipidemia 07/20/2002 08/06/2009 Overview (01/24/2015): Problem list name updated by automated process. Provider to review Encounters Date Type Department Care Team Description 09/04/2024 Results Follow-Up [facility] [address] [facility] [place] [phone] Jolie Wild APRN CNP Subj: Message about your results 08/31/2024 11:00 AM CDT Office Visit [facility] [address] [facility] [place] [phone] Jolie Wild APRN CNP Hypertension goal BP (blood pressure) < 140/90 (Primary Dx); Type 2 diabetes mellitus without complication, without long-term current use of insulin (H); Hyperlipidemia LDL goal <100; HYPERLIPIDEMIA LDL GOAL <100; Diabetic polyneuropathy associated with type 2 diabetes mellitus (H) 08/31/2024 Travel 08/18/[address] [facility] [address] [facility] [place] [phone] Dariela Arteaga MA 08/18/[address] [facility] [address] [facility] [place] [phone] Jolie Wild APRN CNP Panel Management 07/03/[address] [facility] [address] [facility] [place] [phone] Sarah Zhong MD Medication Refill 07/03/[address] [facility] [address] [facility] [place] [phone] Jolie Wild APRN CNP Medication Refill from Last 3 Months Immunizations Immunization Administration Dates Next Due Influenza Vaccine >6 months,quad, PF 03/14/2021, 02/23/2020 Pneumococcal 23 valent 11/08/2014,09/24/2010 TDAP Vaccine (Adacel) 02/15/2018,06/09/2007 Zoster recombinant adjuvanted (Shingrix) 020,05/09/2019 Family History Medical History Relation Comments Cardiovascular Brother 2 [place] at age 38 Diabetes Mother Hypertension Mother Uterine Cancer Niece Colon Cancer Sister 1 passed in 2017 f rom colon cancer Cardiovascular Sister 3 [place] x 2 at age 50 , lung CA Other Cancer Sister 3 Relation Status Comments Brother 1 x2 Brother 2 Alive Father (Age 76) Maternal Grandfather Maternal Grandmother Mother (Age 72) Niece Paternal Grandfather Paternal Grandmother Sister 1 x 5 Sister 2 (Age 52) lung cancer Sister 3 Alive Sister 4 Alive Sister 5 Alive Sister 6 Alive Social History Tobacco Use Types Packs/Day Years Used Date Smoking Tobacco: Never Smokeless Tobacco: Never Tobacco Cessation:Counseling Given: Not Answered Alcohol Use Standard Drinks/Week Comments Yes 0 [...] on file Legal Sex Female 3:11 AM AIRLINE RADIO OPERATOR Gender Identity Not on file Sexual Orientation Not on file Occupation Industry Job Start Date Job End Date retired Not on file Not on file Not on file Not on file Not on file Not on file Not on file Last Filed Vital Signs Vital Sign Reading [...] Mass Index 21.52 08/31/2024 10:58 AM CDT Plan of Treatment Upcoming Encounters Date Type Department Care Team (Late st Contact Info) Description 03/06/2025 9:00 AM AIRLINE RADIO OPERATOR Office Visit [facility] [address] [place] [phone] Jolie Wild APRN SUPERVISOR PLASTICS [address] [facility] [address] Health Maintenance Due Date Last Done Comments CT COLONOGRAPHY 1955 FIT 1955 FLEX SIG 1955 sDNA (Cologuard) 1955 PNEUMOCOCCAL VACCINE 50+ YEARS (2 of 2 - PCV) 11/09/2015 11/08/2014, 09/24/2010 RSV VACCINE (1 - Risk 60-74 years 1-dose series) 2017 MEDICARE ANNUAL WELLNESS VISIT 12/18/2023 12/17/2022, 12/18/2020, 05/09/2019, Additional history exists COVID-19 VACCINE ( season) 2023 08/27/2021, 03/16/2021, 08/09/2020, Additional history exists ADVANCE CARE PLANNING 05/09/2024 05/09/2019, 013 EYE EXAM 08/12/2024 08/13/2023, 1106/2020, 02/24/2021, Additional history exists CMP 11/14/2024 11/15/2023, 11/25, 07/03/2021, Additional history exists DIABETIC FOOT EXAM 11/14/2024 11/15/2023, 0 11/15/2023, 07/03/2021, Additional history exists INFLUENZA VACCINE (Season Ended) 2024 03/14/2021, 02/23/2020 A1C 03/03/2025 08/31/2024, 10/25, 12/17/2022, Additional history exists FALL RISK ASSESSMENT 03/17/2025 03/17/2024, 12/17/2022, 02/26/2022 MAMMO SCREENING 03/17/2025 03/17/2024, 02/24, 02/09/2022, Additional history exists ANNUAL REVIEW OF HM ORDERS 08/31/202508/31, 11/15/2023, 12/18/2020 BMP 08/31/2025 08/31/2024, 02/25, 01/20/2024, Additional history exists LIPID 08/31/2025 08/31/2024, 10/25, 12/17/2022, Additional history exists MICROALBUMIN 08/31/2025 08/31/2024, 10/25, 12/17/2022, Additional history exists COLONOSCOPY 04/08/2027 04/08/2022, 03/26, 02/05/2017, Additional history exists COLORECTAL CANCER SCREENING 04/08/2027 DTAP/TDAP/TD VACCINE (3 - Td or Tdap) 02/16/2028 02/15/2018, 06/09/2007 DEXA 02/23/2038 02/23/2023 HEPATITIS C SCREENING Completed 04/07/2016 PAP Discontinued 08/12/2017, 07/25, 08/12/2017, Additional history exists ZOSTER VACCINE Completed 08/31/2019, 05/09/2019 TSH W/FREE T4 REFLEX Discontinued 07/03/2021, 06/26/2020, 05/09/2019, Additional history exists PHQ-2 (once per calendar year) Completed 08/31/2024, 11/15/2023, 09/30/2022, Additional history exists HPV VACCINE Aged Out No longer eligi ble based on patient's age to complete this topic MENINGITIS VACCINE Aged Out No longer eligible based on patient's age to complete this topic Medical Devices Implanted Type Area Gas Engine Performance Engineer Device Identifier Shelf Expiration Date Model / Serial / Lot Cross Ft Suture [place] 5.5 Mm Implanted:Qty: 1 on 09/18/2011 at [facility] Right: Shoulder 06/23/2016 CFP-[id number] / / [id number] [employer] S[employer] [place] 5.5 Mm Implanted:Qty: 1 on 09/18/2011 at [facility] Right: Shoulder 06/23/2016 CFP-[id number] / / [id number] Cross Ft Suture [place] 5.5 Mm Implanted:Qty: 1 on 09/18/2011 at [facility] Right: Shoulder 06/23/2016 [id number]-[id number] / / [id number] [place] Suture [place] Implanted:Qty: 1 on 09/18/2011 at [facility] Right: Shoulder 01/19/2016 CKP-[id number] / / [id number] Procedures Procedure Name Priority Date/Time Associated Diagnosis [...] of insulin (H) Hyperlipidemia LDL goal <100 LIPID REFLEX TO DIRECT LDL PANEL Routine 08/31/2024 10:41 AM CDT Hyperlipidemia LDL goal <100 HEMOGLOBIN A1C Routine 08/31/2024 10:41 AM CDT Type 2 diabetes mellitus without complication, without long-term current use of insulin (H) MA SCREENING BILATERAL W/ ADRIAN Routine 03/17/2024 11:30 AM AIRLINE RADIO OPERATOR Visit for screening mammogram COMPREHENSIVE METABOLIC PANEL Routine 11/15/2023 9:38 AM CDT Type 2 diabetes mellitus without complication, without long-term current use of insulin (H) Hyperlipidemia LDL goal <100 EYE EXAM - HIM SCAN 08/13/2023 1 2:00 AM CDT DX BONE DENSITY Routine 02/23/2023 9:55 AM CDT Asymptomatic menopausal state COLONOSCOPY Routine 04/08/2022 7:53 AM AIRLINE RADIO OPERATOR TSH WITH FREE T4 REFLEX Routine 07/03/2021 9:54 AM AIRLINE RADIO OPERATOR Type 2 diabetes mellitus without complication, without long-term current use of insulin (H) Hyperlipidemia LDL goal <100 PAP SMEAR - HIM PATIENT REPORTED Routine 08/12/2017 HEPATITIS C ANTIBODY Routine 04/07/2016 8:25 AM AIRLINE RADIO OPERATOR Need for hepatitis C screening test C FOOT EXAM Routine 09/12/2013 9:25 AM CDT Type 2 diabetes, HbA1C goal < 7% (H) from Last 3 Months or Most Recently Relevant to Health Maintenance Results * Albumin Random Urine Quantitative with Creat Ratio (08/31/2024 10:51 AM CDT) Pathologist [facility] Creatinine Urine mg/dL 22.4 mg/dL 08/31/2024 4:50 [...] control, and institution of therapy with an ccaywazclde-xzcdbozzkb-zbjmgd (HANNAH) inhibitor (if the patient can tolerate it). Urine URINE SPECIMEN / Unknown Non-blood Collection / Unknown 08/31/2024 10:51 AM CDT 08/31/2024 10:51 AM CDT us Jolie Wild APRN SUPERVISOR PLASTICS LAB - URINE ORDERABLES Final Result LABORATORY [facility] [address] [facility], [address] [place] [phone] * (ABNORMAL) Lipid panel reflex [...] 219 mg/dL Very High: >= 220 mg/dL us Jolie Wild APRN SUPERVISOR PLASTICS LAB - BLOOD ORDERABLES Final Result [facility] LABORATORY [facility] [address] [facility], [address] [place] [address] * (ABNORMAL) Hemoglobin A1c (08/31/2024 10:41 AM CDT) Pathologist [facility] Estimated Average Glucose 163(H) <117 mg/dL 08/31/2024 10:49 AM CDT LABORATORY Hemoglobin A1C 7.3(H) 0.0 - 5.6 % 08/31/2024 10:49 AM CDT LABORATORY Comment: Normal <5.7% Prediabetes 5.7-6.4% Diabetes 6.5% or higher Note: Adopted from ADA consensus guidelines. Blood BLOOD SPECIMEN / Unknown Venipuncture / Unknown 08/31/2024 10:41 AM CDT 08/31/2024 10:41 AM CDT us Jolie Wild LAUNDRY SUPERVISOR SUPERVISOR PLASTICS LAB - BLOOD ORDERABLES Final Result LABORATORY [facility] [address] [facility] (no room number, 1st floor of clinic) [place] [address] * (ABNORMAL) Basic metabolic panel (Ca, Cl, CO2, Creat, Gluc, K, Na, BUN) (08/31/2024 10:41 AM CDT) [facility] Sodium 138 135 - 145 mmol/L 08/31/2024 [...] 2:59 PM CDT [facility] LABORATORY Comment:eGFR calculated us2020 CKD-EPI equation. Calcium 9.8 8.8 - 10.4 mg/dL 08/31/2024 2:59 PM CDT [facility] LAB[facility]ATORY Glucose 211(H) 70 - 99 mg/dL 08/31/2024 2:59 PM CDT [facility] LAB[facility]ATORY Patient Fasting > 8hrs? No 08/31/2024 2:59 PM CDT [facility] Blood BLOOD SPECIMEN / Unknown Venipuncture / Unknown 08/31/2024 10:41 AM CDT 08/31/2024 10:41 AM CDT Jolie Wild APRN, CNP LAB - BLOOD ORDERABLES Final Result [facility] LABORATORY [facility] [address] [facility], [address] [place], [place] [phone] * MA Screen Bilateral w/Adrian (03/17/2024 11:30 AM AIRLINE RADIO OPERATOR) Anatomical Region Laterality Modality Breast Bilateral Mammography Impressions 03/20/2024 1:38 PM AIRLINE RADIO OPERATOR IMPRESSION: ACR BI-RADS Category 1: Negative BREAST CANCER SCREENING RECOMMENDATION: Routine yearly mammography beginning at age 40 or as discussed with your provider. The results and recommendations of this examination will be communicated to the patient. Shan Perez MD Narrative 03/20/2024 1:38 PM AIRLINE RADIO OPERATOR BILATERAL FULL FIELD DIGITAL SCREENING MAMMOGRAM WITH TOMOSYNTHESIS Performed on: 03/17/24 Compared to: 03/08/2023 and 08/12/2017 Technique: This study was evaluated with the assistance of Computer-Aided Detection. Breast Tomosynthesis was used in interpretation. Findings: There are scattered areas of fibroglandular density. There is no radiographic evidence of malignancy. Jolie Wild APRN SUPERVISOR PLASTICS IMG MAMMOGRAPHY ORDERAB LES Final Result * (ABNORMAL) Comprehensive metabolic panel (BMP + Alb, Alk Phos, ALT, AST, Total. Bili, TP) (11/15/2023 9:38 AM CDT) Sodium 139 135 - 145 mmol/L 11/15/2023 2:11 PM CDT [facility] LABORATORY Potassium 4.9 3.4 - 5.3 mmol/L 11/15/2023 2:11 PM CDT [facility] LAB[facility]ATORY Carbon Dioxide (CO2) 26 22 - 29 mmol/L 11/15/2023 2:11 PM CDT [facility] LAB[facility] Anion Gap 11 7 - 15 mmol/L 11/15/2023 2:11 PM CDT [facility] Urea Nitrogen 13.0 8.0 - 23.0 mg/dL 11/15/2023 2:11 PM CDT [facility] Creatinine 0.51 0.51 - 0.95 mg/dL 11/15/2023 2:11 PM CDT [facility] LAB[facility] GFR Estimate >90 >60 mL/min/1.7 3m2 11/15/2023 2:11 PM CDT [facility] LAB[facility] Comment:eGFR calculated usin 2020 CKD-EPI equation. Calcium 9.5 8.8 - 10.4 mg/dL 11/15/2023 2:11 PM CDT [facility] LAB[facility]ATORY Comment:Reference intervals for this test were updated on 11/09/2023 to reflect our healthy population more accurately. There may be differences in the flagging of prior results with similar values performed with this method. Those prior results can be interpreted in the context of the updated reference intervals. Chloride 102 98 - 107 mmol/L 11/15/2023 2:11 PM CDT [facility] Glucose 192(H) 70 - 99 mg/dL 11/15/2023 2:11 PM CDT [facility] Alkaline Phosphatase 74 40 - 150 U/L 11/15/2023 2:11 PM CDT [facility] AST 22 0 - 45 U/L 11/15/2023 2:11 PM CDT [facility] ALT 16 0 - 50 U/L 11/15/2023 2:11 PM CDT [facility] Protein Total 7.0 6.4 - 8.3 g/dL 11/15/2023 2:11 PM CDT [facility] Albumin 4.5 3.5 - 5.2 g/dL 11/15/2023 2:11 PM CDT [facility] Bilirubin Total 0.5 <=1.2 mg/dL 11/15/2023 2:11 PM CDT [facility] Patient Fasting > 8hrs? Yes 11/15/2023 2:11 PM CDT [facility] Blood BLOOD SPECIMEN / Unknown Venipuncture / Unknown 11/15/2023 9:38 AM CDT 11/15/2023 9:38 AM CDT us Jolie Wild APRN, CNP LAB - BLOOD ORDERABLES Final Result [facility] LABORATORY [facility] [address] [facility], [address] [place] [address] * (ABNORMAL) Eye Exam - HIM Scan (08/13/2023 12:00 AM CDT) RETINOPATHY POSITIVE(A ) 08/13/2023 Narrative Luisa Dozier - 08/13/2023 12:00 AM CDT EYE EXAM [facility] EYE Provider Outside OTHER Edited Result - Final * DX Hip/Pelvis/Spine (02/23/2023 9:55 AM CDT) Anatomical Region Laterality Modality Dexa Bone Mineral Den sity Narrative 02/25/2023 8:55 AM CDT BONE DENSITOMETRY [address] [address] 02/23/2023 PATIENT: Myesha An CHART: [id number] : 1955 AGE: [age] year old SEX: female REFERRING PROVIDER: Jolie Wild Ra, APRN CNP PROCEDURE: Bone density scanning was performed using DXA technology of the lumbar spine and hip. Scanning was performed on a TrovaGene scanner. Reporting is completed in the form of a T-score. The T-score represents the standard deviation from peak bone mass based on a young healthy adult. REFERENCE T-SCORES: Normal -1.0 and greater Osteopenia Between -1.0 and -2.5 Osteoporosis -2.5 and less RISK FACTORS: Post-menopausal, Regular alcohol intake of 3 drinks or more daily CURRENT TREATMENT: Calcium FINDINGS: Lumbar Spine (L1-L4) T-score: 1.7, marked degenerative changes present Left Femoral Neck T-score: 0.1 Right Femoral Neck T-score: -0.9 Lumbar (L1-L4) BMD: 1.409 Total Hip Mean BMD: 0.989 IMPRESSION Normal bone mineral density., Degenerative changes of the lumbar spine which may falsely elevate results. Recommendations include ensuring adequate Calcium and Vitamin D. The current NOF Guidelines recommend treatment for patients with prior hip or vertebral fracture, T-score -2.5 or below, or 10 year risk of any major osteoporotic fracture 20% or greater, or 10 year risk of hip fracture 3% or greater as calculated using the FRAX calculator (www.shef.ac.uk/FRAX or you can google FRAX). This patient's risks based on available information, with the use of FRAX, are 8.9 % for major osteoporotic fracture and 0.8 % for hip fracture. Based on these guidelines, treatment (in addition to calcium and vitamin D) is not recommended for this patient, after ruling out other causes of osteoporosis. This is meant as an aid to clinical decision making; one must still use clinical judgement. Follow up can be considered in 5 years. June Sinha M.D. Electronically signed us Jolie Wild APRN SUPERVISOR PLASTICS IMG DEXA ORDERABLES Fin al Result * COLONOSCOPY (04/08/2022 7:53 AM AIRLINE RADIO OPERATOR) [facility] Patient Name: Myesha An Procedure Date: 04/08/2022 7:53 AM Date of : 1955 Admit Type: Outpatient Age: 67 Gender: Female Attending MD: DAVON BAEZA MD Total Sedation Time: 18_minutes continuous bedside 1:1 Instrument Name: 222 - Adult Colonoscope Procedure: Colonoscopy Indications: Screening in patient at increased risk: Family history of 1st-degree relative with colorectal cancer before age 60 years Providers: DAVON BAEZA MD (Doctor) Referring MD: SARAH ZHONG MD (Referring MD) Medicines: Midazolam 3 mg IV, Fentanyl 150 micrograms IV Complications: No immediate complications. Procedure: Pre-Anesthesia Assessment: - Prior to the procedure, a History and Physical was performed, and patient medications and allergies were reviewed. The patient is competent. The risks and benefits of the procedure and the sedation options and risks were discussed with the patient. All questions were answered and informed consent was obtained. Patient identification and proposed procedure were verified by the physician in the procedure room. Mental Status Examination: alert and oriented. Respiratory Examination: clear to auscultation. CV Examination: normal. Prophylactic Antibiotics: The patient does not require prophylactic antibiotics. Prior Anticoagulants: The patient has taken no anticoagulant or antiplatelet agents. ASA Grade Assessment: II - A patient with mild systemic disease. After reviewing the risks and benefits, the patient was deemed in satisfactory condition to undergo the procedure. The anesthesia plan was to use moderate sedation / analgesia (conscious sedation). Immediately prior to administration of medications, the patient was re-assessed for adequacy to receive sedatives. The heart rate, respiratory rate, oxygen saturations, blood pressure, adequacy of pulmonary ventilation, and response to care were monitored throughout the procedure. The physical status of the patient was re-assessed after the procedure. After obtaining informed consent, the colonoscope was passed under direct vision. Throughout the procedure, the patient's blood pressure, pulse, and oxygen saturations were monitored continuously. The Olympus Adult Colonoscope, Model # [id number], [place] # 222, SN # [id number] was introduced through the anus and advanced to the cecum, identified by appendiceal orifice and ileocecal valve. The colonoscopy was performed without difficulty. The patient tolerated the procedure well. The quality of the bowel preparation was good. The ileocecal valve, appendiceal orifice, and rectum were photographed. Findings: The perianal and digital rectal examinations were normal. The entire examined colon appeared normal on direct and retroflexion views. Impression: - The entire examined colon is normal on direct and retroflexion views. - No specimens collected. Recommendation: - Repeat colonoscopy in 5 years for surveillance. Procedure Code(s): --- Professional --- G0105, Colorectal cancer screening; colonoscopy on individual at high risk Diagnosis Code(s): --- Professional --- Z80.0, Family history of malignant neoplasm of digestive organs CPT copyright 2020 [employer]. All rights reserved. The codes documented in this report are preliminary and upon vibration technician review may be revised to meet current compliance requirements. Electronically signed by Davon Baeza MD __ DAVON BAEZA MD 04/08/2022 8:59:44 AM I was physically present for the entire viewing portion of the exam. DAVON BAEZA MD Number of Addenda: 0 Note Initiated On: 04/08/2022 7:53 AM Procedure Date: 04/08/2022 7:53:04 AM Scope Withdrawal Time: 0 hours 5 minutes 46 seconds Total Procedure Duration: 0 hours 16 minutes 48 seconds Estimated Blood Loss: Scope In: 8:37:07 AM Scope Out: 8:53:55 AM RADIOLOGY RESULTS 04/08/2022 7:53 AM AIRLINE RADIO OPERATOR us Sarah Zhong MD PROCEDURES Final Result RADIOLOGY RESULTS * TSH with free T4 reflex (07/03/2021 9:54 AM AIRLINE RADIO OPERATOR) Pathologist [facility] TSH 1.27 0.40 - 4.00 mU/L 07/03/2021 4:38 PM AIRLINE RADIO OPERATOR [facility] LABORATORY Blood STRUCTURE OF RIGHT UPPER LIMB / Unknown Venipuncture / Unknown 07/03/2021 9:54 AM AIRLINE RADIO OPERATOR 07/03/2021 9:54 AM AIRLINE RADIO OPERATOR us Jolie Junito DAWKINS SUPERVISOR PLASTICS LAB - BLOOD ORDERABLES Final Result Performing Organization Address [facility] Co de Phone Number [facility] [facility] [address] Lab (no room number, 1st floor of clinic) [place] [address], [facility] [phone] * PAP Smear - HIM Patient Reported (08/12/2017) Pathologist [facility] PAP Smear - HIM Patient Reported Negative EXTERNAL LAB 08/12/2017 Narrative EXTERNAL LAB - 08/12/2017 Jeanna Sow Abstract Quality Initiatives Please abstract the following data from this visit with this patient into the appropriate field in Epic: Pap smear done on this date: 08/12/17, by this group: [facility], results were negative. HPV was also negative. us Patient Reported LABORATORY Final Result Performing Organization Address City/[facility]/ZIP Co de Phone Number EXTERNAL LAB External Lab * Hepatitis C antibody (04/07/2016 8:25 AM AIRLINE RADIO OPERATOR) Pathologist [facility] Hepatitis C Antibody Nonreactive Assay performance characteristics have not been established for newborns, infants, and children [facility] Blood specimen (specimen) 04/07/2016 8:25 AM AIRLINE RADIO OPERATOR 04/07/2016 8:26 AM AIRLINE RADIO OPERATOR us Supriya Florez PA-C LAB - BLOOD ORDERAB LES Final Result [facility] [address] [place] [address] from Last 3 Months or Most Recently Relevant to Health Maintenance Insurance UCARE MEDICARE UCARE MEDICARE Care Teams Brass Pourer Relationship Specialty Start Date End Date Jolie Wild APRN CNP [address] [place] [address] PCP - General Family Practice 11/08/19 Jolie Wild APRN [employer] [address] [place] [address] Assigned PCP 11/12/19 Sole Lockhart DPRenea, Podiatry/Foot and Ankle Surgery [address] [place] [facility] [address] [place] [address] Assigned Musculoskeletal Provider 10/03/22 Myron Moore MD [address] [facility] [address] [place] [address] Assigned OBGYN Provider 03/13/23
--- OUTSIDE RECORDS SUMMARY | 2024-09-25 22:36 | XMS_ITS | Encounter Summary ---
Author Organization [facility] Address [address] [place] [address]. [place] [address] Care Team Providers Care Cable Tower Operator Name Role Phone Jolie Wild APRN MINE WED[employer] SAWYER Primary Care Provider Jolie Wild APRN [employer] SAWYER Unavailable [phone] Sole Lockhart DPM, Podiatry /Foot and Ankle Surgery Unavailable Myron Moore MD Unavailable [phone] Encounter Details Date Type Department Care Team (Late st Contact Info) Description 12/24/2023 [facility] Medical Advice [address] [address] Traci West MA Social History Tobacco Use Types Packs/Day [...] on file Legal Sex Female 3:11 AM OBGYN HOSPITALIST PHYSICIAN Gender Identity Not on file Sexual Orientation Not on file Occupation Industry Job Start Date Job End Date retired Not on file Not on file Not on file Not on file Not on file Not on file Not on file documented as of this encounter Plan of Treatment Upcoming Encounters Date Type Department Care Team (Late st Contact Info) Description 03/06/2025 9:00 AM OBGYN HOSPITALIST PHYSICIAN Office Visit [facility] [address] [place] [phone] Jolie Wild APRN MINE WEDGE SAWYER [address] [place] [address] documented as of this encounter Visit Diagnoses Not on filedocumented in this encounter Additional Health Concerns Assessment Noted Time PHQ-9 Depression Total Score: 2 12/19/19 21 11:32 AM CDT documented as of this encounter Care Teams Cable Tower Operator Relationship Specialty Start Date End Date Jolie Widl APRN M[employer] SAWYER [address] [address] PCP - General Family Practice 11/08/19 Jolie Wild APRN [employer]WYER [address] [place] [address] Assigned PCP 11/12/19 Sole Lockhart DPRenea, Podiatry/Foot and Ankle Surgery [address] [place] [address] Assigned Musculoskeletal Provider 10/03/22 Myron Moore MD [address] [place] [address] Assigned OBGYN Provider 03/13/23 documented as of this encounter
[2024-09-25 22:46] VITALS: BP 143/89; PULSE 78; RESP 16; TEMP 36.7; O2SAT 97; BMI 22.0
--- NOTE | 2024-09-25 23:39 | CRLHL7_ITS ---
For Patients: As a result of the Century Cures Act, medical imaging exams and procedure reports are released immediately into your electronic medical record. You may view this report before your referring provider. If you have questions, please contact your health care provider. Indication: Right-sided abdominal pain. Technique: Abdomen 2 view. Comparison: None. Findings/Impression: Bowel: Bowel pattern is normal. Mild colonic stool burden. Soft tissues: No sign of free air. No sign of soft tissue mass. No suspicious calcifications. Bones: Unremarkable for age. Dictated by Cirilo Collado MD @ 09/26/2024 12:25:32 AM (Electronically Signed)
--- NOTE | 2024-09-25 23:43 | ED.GENADULT ---
HPI - General Adult General Chief complaint: Abdominal Pain <Sierra Jade MD - Last Filed: 09/29/24 11:19> Stated complaint: R side abdominal pain x's 1wk <Sierra Jade MD - Last Filed: 09/29/24 11:19> Time Seen by Provider: 09/25/24 23:32 <Sierra Jade MD - Last Filed: 09/29/24 11:19> Source: patient <Sierra Jade MD - Last Filed: 09/29/24 11:19> Mode of arrival: ambulatory <Sierra Jade MD - Last Filed: 09/29/24 11:19> Limitations: no limitations <Sierra Jade MD - Last Filed: 09/29/24 11:19> History of Present Illness HPI narrative: 69-year-old female coming in today complaining of right-sided abdominal pain the from present for the last 2 weeks. The pain comes and goes. It happens once or twice every other day. When it comes it lasts for a few seconds to less than a minute. She describes it as a sharp sensation that catches her out of the blue. She has to stop what she is doing until it passes. She denies diarrhea or constipation. States that she has daily bowel movements. She denies increased urinary frequency or urgency. No dysuria. No change in the color or smell t of her urine. No blood in her urine or stool. No changes in her appetite. No weight changes. No changes in the way that her pants fit. No fevers or chills. No vaginal bleeding or discharge. No changes in her medications. Past intra-abdominal surgeries include tubal ligation, suburethral sling procedure. She is currently asymptomatic. <Sierra Jade MD - Last Filed: 09/29/24 11:19> Related Data Home medications: Home Medications ?Medication ?Instructions ?Recorded ?Confirmed blood sugar diagnostic (OneTouch #10 ea 02/11/22 01/09/24 Ultra Test strips) ascorbic acid (vitamin C) 1,000 mg 1 g PO QDAY 02/15/23 09/25/24 tablet aspirin 81 mg tablet,delayed 81 mg PO .qod 02/15/23 09/25/24 release (Adult Low Dose Aspirin) coenzyme Q10 PO 02/15/23 01/09/24 losartan 100 mg tablet 100 mg PO QDAY 02/15/23 09/25/24 lovastatin 40 mg tablet 40 mg PO QDAY 02/15/23 09/25/24 metformin 500 mg tablet,extended 1,000 mg PO BID 02/15/23 09/25/24 release 24 hr amlodipine 10 mg tablet 10 mg PO DAILY 09/25/24 09/25/24 hydrochlorothiazide 12.5 mg tablet 12.5 mg PO DAILY 09/25/24 09/25/24 hydrochlorothiazide 25 mg tablet 25 mg PO DAILY 09/25/24 09/25/24 Previous Rx's ?Medication ?Instructions ?Recorded potassium chloride 20 mEq 20 meq PO DIRECTED #35 tabs 09/26/24 tablet,extended release <Sierra Jade MD - Last Filed: 09/29/24 11:19> Allergies/adverse reactions: Allergies Allergy/AdvReac Type Severity Reaction Status Date / Time Penicillins Allergy Mild Rash Verified 01/09/24 11:43 <Sierra Jade MD - Last Filed: 09/29/24 11:19> Review of Systems Status of ROS: Reports: 10 or more systems reviewed and unremarkable except as noted in History and below <Sierra Jade MD - Last Filed: 09/29/24 11:19> [facility] Medical History: Medical History Hammertoe of left foot ?M20.42 - Other hammer toe(s) (acquired), left foot (ICD-10) Peripheral neuropathy ?G62.9 - Polyneuropathy, unspecified (ICD-10) 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 - Plantar fascial fibromatosis (ICD-10) Hypertension ?I10 - Essential (primary) hypertension (ICD-10) Recurrent herpes labialis ?B00.1 - Herpesviral vesicular dermatitis (ICD-10) Dyslipidemia ?E78.5 - Hyperlipidemia, unspecified (ICD-10) Diabetes mellitus type 2 in nonobese (2007) ?E11.9 - Type 2 diabetes mellitus without complications (ICD-10) Chronic sinus complaints (2017) ?R09.89 - Other specified symptoms and signs involving the circulatory and respiratory systems (ICD-10) Allergic rhinitis ?J30.9 - Allergic rhinitis, unspecified (ICD-10) Allergic conjunctivitis ?H10.10 - Acute atopic conjunctivitis, unspecified eye (ICD-10) <Sierra Jade MD - Last Filed: 09/29/24 11:19> Surgical History: Surgical History History of tubal ligation (1995) ?Z98.51 - Tubal ligation status (ICD-10) History of suburethral sling procedure (2010) ?Z98.890 - Other specified postprocedural states (ICD-10) History of shoulder surgery (2011) ?Z98.890 - Other specified postprocedural states (ICD-10) History of nasal septoplasty (1996) ?Z98.890 - Other specified postprocedural states (ICD-10) History of nasal polypectomy (1986) ?Z98.890 - Other specified postprocedural states (ICD-10) ?Z87.09 - Personal history of other diseases of the respiratory system (ICD-10) <Sierra Jade MD - Last Filed: 09/29/24 11:19> Family History: Family History Brother Heart disease Myocardial infarction, Onset Age: 38 Sister Heart disease Myocardial infarction, Onset Age: 50 Colon cancer, Onset Age: 60 Lung cancer Uncle Heart disease Myocardial infarction Mother Diabetes High blood pressure <Sierra Jade MD - Last Filed: 09/29/24 11:19> Social History: Social History What is your current living situation?: I presently have a place to live Problems where you live: no known problems In the past 12 months, utilities in danger of being shut off: no In past 12 months, lack of transportation kept you from medical appts, meetings, work, or getting things needed for daily living: no In the past 12 mos, have been you worried that your food would run out before you had money to buy more?: never true In the past 12 mos, the food you bought just didn't last and you didn't have money to buy more?: never true Smoking Status: Never smoker Do you use any of these nicotine containing products: None Second hand tobacco smoke exposure: No Non-prescribed substance use: denies use How often does anyone, including family, friends and others, physically hurt you: never How often does anyone, including family, friends and others, insult or talk down to you: never How often does anyone, including family, friends and others, threaten you with harm: never How often does anyone, including family, friends and others, scream or curse at you: never service: No <Sierra Jade MD - Last Filed: 09/29/24 11:19> Exam Narrative: Exam Narrative: Well-nourished well-developed patient in no acute distress. Alert and oriented. Answers questions appropriately. Mood and affect are appropriate. Thoughts are goal oriented and rational. No tangential or magical thinking noted. Patient speaks in full sentences without needing to catch her breath. HEENT: Normocephalic atraumatic. Pupils are equally round reactive to light. Extraocular muscles are intact. Conjunctivae are moist without any icterus noted. Moist mucous membranes. Cardiovascular: Heart is regular rate and rhythm S1 and S2 are present without any murmurs. Lungs: Clear to auscultation bilaterally no wheezes rhonchi or rales are appreciated. Patient takes deep breaths without any discomfort. Abdomen: Soft and nontender nondistended with normal bowel sounds. No guarding or rebound. No masses or organomegaly appreciated. No CVA tenderness. Extremities: Bilateral lower extremities are without edema. Skin: Well perfused. <Sierra Jade MD - Last Filed: 09/29/24 11:19> Const: Vital Signs, click to edit/add: Vital Signs - 24 hr 09/25/24 22:46 Temperature 98.0 F Pulse Rate [Pulse Oximeter] 78 Respiratory Rate 16 Blood Pressure [Ri ght Upper Arm] 143/89 H Pulse Oximetry 97 Oxygen Delivery Me thod Room Air <Sierra Jade MD - Last Filed: 09/29/24 11:19> Vital Signs, click to edit/add: Vital Signs - 24 hr 09/25/24 22:46 Temperature 98.0 F Pulse Rate [Pulse Oximeter] 78 Respiratory Rate 16 Blood Pressure [Ri ght Upper Arm] 143/89 H Pulse Oximetry 97 Oxygen Delivery Me thod Room Air <Paige Kay MD - Last Filed: 09/26/24 01:30> Course Course ED Course: Differential diagnosis includes musculoskeletal cramping, colonic cramping, scar tissue in the abdomen pulling, constipation. At this time will do blood work to rule out signs of infection or inflammation. Proceeded with an abdominal x-ray to rule out constipation. <Sierra Jade MD - Last Filed: 09/29/24 11:19> Reevaluation(s) Time of Reevaluation #1: 01:29 <Paige Kay MD - Last Filed: 09/26/24 01:30> Reevaluation #1: I inherited care from outgoing evening provider. Labs show hypokalemia, x-ray and remainder of labs are otherwise unremarkable. Patient is not symptomatic at this time. I am uncertain that this hypokalemia is related to her abdominal symptoms but there is certainly no red flags at this time. Will give 40 mEq p.o. potassium here in the ED. We will then have her continue on 20 b.i.d. with food for 5 days and then 20 mg once daily. Ideally I would like for her to follow-up in a week to have her levels rechecked and of course be re-evaluated for her symptoms. Proceeding with CT scan if her symptoms have failed to improve. She states that she will be going out of the country for a week in [place]. I have cautioned her to avoid drinking more than 1 alcoholic beverage per day. She will continue the potassium while she is in [place] and have her labs rechecked when she gets back per her preference. Counseled patient of alarm symptoms that would warrant ED presentation or sooner workup and she verbalizes understanding and agreement. Written instructions provided. <Paige Kay MD - Last Filed: 09/26/24 01:30> Vital Signs Vital signs: Initial Vital Signs Temperature 98.0 F 09/25/24 22:46 Temperature Source Temporal Artery Scan 09/25/24 22:46 Pulse Rate 78 09/25/24 22:46 Pulse Rhythm Regular 09/25/24 22:46 Respiratory Rate 16 09/25/24 22:46 Blood Pressure 143/89 H 09/25/24 22:46 Blood Pressure Mean 107 H 09/25/24 22:46 Blood Pressure Position Sitting 09/25/24 22:46 Pulse Oximetry 97 09/25/24 22:46 Oxygen Delivery Method Room Air 09/25/24 22:46 Vital Signs Temperature 98.0 F 09/25/24 22:46 Pulse Rate 78 09/25/24 22:46 Respiratory Rate 16 09/25/24 22:46 Blood Pressure 143/89 H 09/25/24 22:46 Pulse Oximetry 97 09/25/24 22:46 Oxygen Delivery Method Room Air 09/25/24 22:46 Temperature 98.0 F 09/25/24 22:46 Pulse Rate 78 09/25/24 22:46 Respiratory Rate 16 09/25/24 22:46 Blood Pressure 143/89 H 09/25/24 22:46 Pulse Oximetry 97 09/25/24 22:46 Oxygen Delivery Method Room Air 09/25/24 22:46 <Sierra Jade MD - Last Filed: 09/29/24 11:19> Initial Vital Signs Temperature 98.0 F 09/25/24 22:46 Temperature Source Temporal Artery Scan 09/25/24 22:46 Pulse Rate 78 09/25/24 22:46 Pulse Rhythm Regular 09/25/24 22:46 Respiratory Rate 16 09/25/24 22:46 Blood Pressure 143/89 H 09/25/24 22:46 Blood Pressure Mean 107 H 09/25/24 22:46 Blood Pressure Position Sitting 09/25/24 22:46 Pulse Oximetry 97 09/25/24 22:46 Oxygen Delivery Method Room Air 09/25/24 22:46 Vital Signs Temperature 98.0 F 09/25/24 22:46 Pulse Rate 78 09/25/24 22:46 Respiratory Rate 16 09/25/24 22:46 Blood Pressure 143/89 H 09/25/24 22:46 Pulse Oximetry 97 09/25/24 22:46 Oxygen Delivery Method Room Air 09/25/24 22:46 Temperature 98.0 F 09/25/24 22:46 Pulse Rate 78 09/25/24 22:46 Respiratory Rate 16 09/25/24 22:46 Blood Pressure 143/89 H 09/25/24 22:46 Pulse Oximetry 97 09/25/24 22:46 Oxygen Delivery Method Room Air 09/25/24 22:46 <Paige Kay MD - Last Filed: 09/26/24 01:30> Medications Administered Medications: Discontinued Medications Generic Name Dose Route Start Last Admin Trade Name Freq PRN Reason Stop Dose Admin Potassium Chloride 40 meq 09/26/24 01:13 09/26/24 01:26 Potassium Chloride 10 Meq Capsule Er PO 09/26/24 01:14 40 meq ONCE ONE Administration <Sierra Jade MD - Last Filed: 09/29/24 11:19> Discontinued Medications Generic Name Dose Route Start Last Admin Trade Name Freq PRN Reason Stop Dose Admin Potassium Chloride 40 meq 09/26/24 01:13 09/26/24 01:26 Potassium Chloride 10 Meq Capsule Er PO 09/26/24 01:14 40 meq ONCE ONE Administration <Paige Kay MD - Last Filed: 09/26/24 01:30> Medical Decision Making Lab Data Lab results reviewed: Yes I reviewed the patient's lab results <Paige Kay MD - Last Filed: 09/26/24 01:30> Lab results narrative: No signs of infection or anemia but patient does have hypokalemia. Uncertain of chronicity. Suspected this is a combination of nutritional and from her medications long-term. <Paige Kay MD - Last Filed: 09/26/24 01:30> Labs: Lab Results 09/26/24 09/26/24 Range/Units 00:00 00:10 WBC 6.25 (4.50-11.00) K/uL RBC 4.20 (4.00-5.20) m/uL Hgb 13.4 (12.0-16.0) gm/dL Hct 39.1 (33.0-51.0) % MCV 93 (80-100) fL MCH 32 (26-34) pg MCHC 34 (32-36) gm/dL RDW Coeff of Thomas 11.7 (11.5-15.5) % Plt Count 235 (140-440) K/uL Neut % (Auto) 51.9 (42.0-72.0) % Lymph % (Auto) 33.8 (20-44) % Weber % (Auto) 8.0 (0.0-11.0) % Eos % (Auto) 5.0 (0.0-7.0) % Baso % (Auto) 0.8 (0.0-3.0) % Neut # (Auto) 3.25 (1.7-7.0) K/uL Lymph # (Auto) 2.11 (0.90-2.90) K/uL Weber # (Auto) 0.50 (0.00-0.90) K/UL Eos # (Auto) 0.31 (0.00-0.50) K/uL Baso # (Auto) 0.05 (0.00-0.30) K/uL Abs Immat Gran (auto) 0.03 (0.00-0.30) K/uL Imm/Tot Granulo (auto) 0.5 % Sodium 138 (135-149) mmol/L Potassium 2.8 L* (3.6-5.1) mmol/L Chloride 100 (96-114) mmol/L Carbon Dioxide 21 (20-32) mmol/L Anion Gap 17 H (7-15) mEq/L BUN 8 (7-30) mg/dL Creatinine 0.5 (0.5-1.5) mg/dL Estimated Creat Clear 51.11 Estimated GFR 103 ml/min Glucose 151 H (60-115) mg/dL Calcium 9.5 (8.4-10.6) mg/dL Total Bilirubin 0.4 (0.1-1.5) mg/dL Direct Bilirubin 0.3 (0.0-0.5) mg/dL AST 29 (12-35) U/L ALT 22 (4-35) U/L Alkaline Phosphatase 59 (40-150) U/L C-Reactive Protein < 0.5 L (0.5-1.0) mg/dL Total Protein 7.6 (6.0-8.3) g/dL Albumin 4.9 (3.3-5.0) g/dL Lipase 107 (23-300) U/L Urine Color Yellow (Yellow) Urine Appearance Clear (Clear) Urine pH 5.5 (5.0-8.5) Ur Specific [place] <= 1.005 (1.000-1.030) Urine Protein Negative (Negative) Urine Glucose (UA) Negative (Negative) Urine Ketones Trace A (Negative) Urine Blood Negative (Negative) Urine Nitrite Negative (Negative) Urine Bilirubin Negative (Negative) Urine Urobilinogen 0.2 (0.2-1.0) Ur Leukocyte Esterase Negative (Negative) Urine RBC 0-2 (0-2) Urine WBC 0-2 (0-5) Ur Squamous Epith Cells Few (None-Few) Urine Bacteria None (None) <Sierra Jade MD - Last Filed: 09/29/24 11:19> Lab Results 09/26/24 09/26/24 Range/Units 00:00 00:10 WBC 6.25 (4.50-11.00) K/uL RBC 4.20 (4.00-5.20) m/uL Hgb 13.4 (12.0-16.0) gm/dL Hct 39.1 (33.0-51.0) % MCV 93 (80-100) fL MCH 32 (26-34) pg MCHC 34 (32-36) gm/dL RDW Coeff of Thomas 11.7 (11.5-15.5) % Plt Count 235 (140-440) K/uL Neut % (Auto) 51.9 (42.0-72.0) % Lymph % (Auto) 33.8 (20-44) % Weber % (Auto) 8.0 (0.0-11.0) % Eos % (Auto) 5.0 (0.0-7.0) % Baso % (Auto) 0.8 (0.0-3.0) % Neut # (Auto) 3.25 (1.7-7.0) K/uL Lymph # (Auto) 2.11 (0.90-2.90) K/uL Weber # (Auto) 0.50 (0.00-0.90) K/UL Eos # (Auto) 0.31 (0.00-0.50) K/uL Baso # (Auto) 0.05 (0.00-0.30) K/uL Abs Immat Gran (auto) 0.03 (0.00-0.30) K/uL Imm/Tot Granulo (auto) 0.5 % Sodium 138 (135-149) mmol/L Potassium 2.8 L* (3.6-5.1) mmol/L Chloride 100 (96-114) mmol/L Carbon Dioxide 21 (20-32) mmol/L Anion Gap 17 H (7-15) mEq/L BUN 8 (7-30) mg/dL Creatinine 0.5 (0.5-1.5) mg/dL Estimated Creat Clear 51.11 Estimated GFR 103 ml/min Glucose 151 H (60-115) mg/dL Calcium 9.5 (8.4-10.6) mg/dL Total Bilirubin 0.4 (0.1-1.5) mg/dL Direct Bilirubin 0.3 (0.0-0.5) mg/dL AST 29 (12-35) U/L ALT 22 (4-35) U/L Alkaline Phosphatase 59 (40-150) U/L C-Reactive Protein < 0.5 L (0.5-1.0) mg/dL Total Protein 7.6 (6.0-8.3) g/dL Albumin 4.9 (3.3-5.0) g/dL Lipase 107 (23-300) U/L Urine Color Yellow (Yellow) Urine Appearance Clear (Clear) Urine pH 5.5 (5.0-8.5) Ur Specific [place] <= 1.005 (1.000-1.030) Urine Protein Negative (Negative) Urine Glucose (UA) Negative (Negative) Urine Ketones Trace A (Negative) Urine Blood Negative (Negative) Urine Nitrite Negative (Negative) Urine Bilirubin Negative (Negative) Urine Urobilinogen 0.2 (0.2-1.0) Ur Leukocyte Esterase Negative (Negative) Urine RBC 0-2 (0-2) Urine WBC 0-2 (0-5) Ur Squamous Epith Cells Few (None-Few) Urine Bacteria None (None) <Paige Kay MD - Last Filed: 09/26/24 01:30> Imaging Data Abdominal x-ray: Attestation: I have reviewed the pertinent imaging results. <Paige Kay MD - Last Filed: 09/26/24 01:30> My impression: Normal abdominal x-ray <Paige Kay MD - Last Filed: 09/26/24 01:30> Radiologist's impression: Findings/Impression: Bowel: Bowel pattern is normal. Mild colonic stool burden. Soft tissues: No sign of free air. No sign of soft tissue mass. No suspicious calcifications. Bones: Unremarkable for age. Dictated by Cirilo Collado MD @ 09/26/2024 12:25:32 AM <Paige Kay MD - Last Filed: 09/26/24 01:30> Discharge Plan Discharge Clinical Impression: Acute hypokalemia <Sierra Jade MD - Last Filed: 09/29/24 11:19> Patient Disposition: Home, Self-Care <Sierra Jade MD - Last Filed: 09/29/24 11:19> Condition: Stable <Sierra Jade MD - Last Filed: 09/29/24 11:19> Instructions: Potassium Content of Foods List (ED), Hypokalemia (ED) <Sierra Jade MD - Last Filed: 09/29/24 11:19> Additional Instructions: As we discussed, I think that your abdominal cramping is from low potassium. Most likely this happened gradually over several years because of medications, diet and unfortunately some people just genetically tend to run low. Once it gets below a certain level, people tend to have fatigue, stomach cramps and other symptoms. We have started you on a potassium supplement here in the emergency room. I will have you continue taking this 2 times a day for the remainder of the week and then continue on once daily until you follow-up with your regular doctor in a couple of weeks. If you are still having the abdominal symptoms, I would recommend a CT scan of the abdomen and pelvis be performed and your provider will need to make a decision about whether or not to keep you on the potassium as well. I would recommend that you be cautious with alcohol, limiting to 1 alcoholic beverage per day. If you have bloody stools, severe weakness, fainting, severe dizziness or other alarming symptoms, he should return to the emergency room. <Sierra Jade MD - Last Filed: 09/29/24 11:19> Activity Level: Activity as Tolerated <Sierra Jade MD - Last Filed: 09/29/24 11:19> Activity as Tolerated <Paige Kay MD - Last Filed: 09/26/24 01:30> Discharge Diet: Regular <Sierra Jade MD - Last Filed: 09/29/24 11:19> Regular <Paige Kay MD - Last Filed: 09/26/24 01:30> Prescriptions: New potassium chloride 20 mEq tablet extended release 20 meq PO DIRECTED Qty: 35 0RF Rx Instructions: One pill by mouth with food 2 times per day for 5 days, then decrease to once daily. No Action aspirin [Adult Low Dose Aspirin] 81 mg tablet,delayed release (DR/EC) 81 mg PO .qod ascorbic acid (vitamin C) 1,000 mg tablet 1 g PO QDAY coenzyme Q10 [Ultra CoQ10] PO (DME) OneTouch Ultra Test Strip See Rx Instructions .ROUTE .MEDSUPPLY Qty: 10 Patient Comments: USE TO TEST BLOOD SUGAR 2 TIMES DAILY OR DIRECTED. Rx Instructions: As directed losartan 100 mg tablet 100 mg PO QDAY Patient Comments: TAKE 1 TABLET BY MOUTH AT BEDTIME lovastatin 40 mg tablet 40 mg PO QDAY metformin 500 mg tablet extended release 24 hr 1,000 mg PO BID Patient Comments: TAKE 2 TABLETS BY MOUTH TWICE A DAY amlodipine 10 mg tablet 10 mg PO DAILY hydrochlorothiazide 25 mg tablet 25 mg PO DAILY hydrochlorothiazide 12.5 mg tablet 12.5 mg PO DAILY <Sierra Jade MD - Last Filed: 09/29/24 11:19> Follow Up/Referrals: Provider,Not a Local [Primary Care Provider, Family Practice] <Sierra Jade MD - Last Filed: 09/29/24 11:19> Stand Alone Forms: [employer] Info Instructions <Sierra Jade MD - Last Filed: 09/29/24 11:19>
[2024-09-26 00:13] LABS: Basophils Absolute Auto 0.05 K/uL (0.00-0.30); Basophils Percent Auto 0.8 % (0.0-3.0); Eosinophils Absolute Auto 0.31 K/uL (0.00-0.50); Hematocrit* 39.1 % (33.0-51.0); Hemoglobin* 13.4 gm/dL (12.0-16.0); Immature Granulocytes Abs Auto 0.03 K/uL (0.00-0.30); Immature Granulocytes Pct Auto 0.5 %; Lymphocytes Absolute Auto 2.11 K/uL (0.90-2.90); Lymphocytes Percent Auto 33.8 % (20-44); Mean Corpuscular HGB Conc 34 gm/dL (32-36); Mean Corpuscular Hemoglobin 32 pg (26-34); Mean Corpuscular Volume 93 fL (80-100); Neutrophils Absolute Auto 3.25 K/uL (1.7-7.0); Neutrophils Percent Auto 51.9 % (42.0-72.0); Platelet Count* 235 K/uL (140-440); RDW Coefficient of Variation % 11.7 % (11.5-15.5); White Blood Count* 6.25 K/uL (4.50-11.00)
[2024-09-26 00:22] LABS: Slide Review Reflex No
[2024-09-26 00:32] LABS: Albumin* 4.9 g/dL (3.3-5.0); Chloride* 100 mmol/L (96-114); Sodium* 138 mmol/L (135-149)
[2024-09-26 00:35] LABS: Alanine Aminotransferase* 22 U/L (4-35); Alkaline Phosphatase* 59 U/L (40-150); Anion Gap 17 mEq/L (7-15); Aspartate Amino Transferase* 29 U/L (12-35); Bilirubin Direct* 0.3 mg/dL (0.0-0.5); Bilirubin Total* 0.4 mg/dL (0.1-1.5); Blood Urea Nitrogen* 8 mg/dL (7-30); Calcium* 9.5 mg/dL (8.4-10.6); Carbon Dioxide* 21 mmol/L (20-32); Creatinine* 0.5 mg/dL (0.5-1.5); Est. Creatinine Clearance* 51.11; Estimated Glomerular Filt Rate 103 ml/min; Glucose* 151 mg/dL (60-115); Lipase* 107 U/L (23-300); Total Protein* 7.6 g/dL (6.0-8.3)
[2024-09-26 00:39] LABS: C Reactive Protein* < 0.5 mg/dL (0.5-1.0); Potassium* 2.8 mmol/L (3.6-5.1)
[2024-09-26 00:42] LABS: Color Urine Yellow (Yellow)
[2024-09-26 00:43] LABS: Appearance Urine Clear (Clear); Bilirubin Urine Negative (Negative); Blood Urine Negative (Negative); Glucose Urine Negative (Negative); Ketones Urine Trace (Negative); Leukocyte Esterase Urine Negative (Negative); Nitrite Urine Negative (Negative); Protein Urine Negative (Negative); RBC Urine 0-2 (0-2); Specific Gravity Urine <= 1.005 (1.000-1.030); Urobilinogen Urine 0.2 (0.2-1.0); WBC Urine 0-2 (0-5); pH Urine 5.5 (5.0-8.5)
[2024-09-26 00:44] LABS: Squamous Epithelial Cell Urine Few (None-Few)
--- NOTE | 2024-09-26 00:48 | PC.NURSE ---
potassium 2.8, reported to Dr Kay who is in the nurses station
[2024-09-26] MEDS: POTASSIUM CHLORIDE 10 MEQ CAPSULE ER 40 MEQ PO (01:26)
== END 2024-09-26 01:40 | disposition home or self-care (01) ==
PROVIDERS: Family Medicine; Emergency Provider Family Medicine
DX: E87.6 Hypokalemia (principal); R10.9 Unspecified abdominal pain
CPT/HCPCS: 36415; 74018; 80048; 80076; 81001; 83690; 85025; 86140; 87086; 99284; A9270